=== PATIENT | female | born 1960 | race African-American/Black ===

== ENCOUNTER 2016-10-16 11:11 | Observation (INO) | payer SELFPAY ==
[~2016-10-16] VITALS: Ht 165.1 cm; Wt 52.0 kg
[~2016-10-16 11:11] MED LIST: FURO1TAB62 PO; IBUP800T23 PO; NEUR100C PO
[2016-10-16 11:13] VITALS: BP 119/77; PULSE 116; RESP 20; TEMP 97.7; O2SAT 97
--- NOTE | 2016-10-16 11:42 | PD ---
Physical Exam Date Seen by Provider: October 16, 2016 Time Seen by Provider: 11:37 Narrative 56 Y/O female patient sent in by MD for Hx 3 weeks Diarrhea, Vomitting, Loss of Appetite and weakness. Was recently given Flagyl for Possible C.Diff. No Fever. No Hx. DM, CA, Or other Chronic Medical Issue. Patient has not eaten since Sunday. Denies Fever or Urinary symptoms. Patient has Anxiety and Depression and Arthritis. Vomitting started yesterday. NKDA. VS Stable. Patient awaiting Bed Placement. Data Data Last Documented VS Vital Signs Date Time Temp Pulse Resp B/P Pulse Ox O2 Delivery O2 Flow Rate FiO2 10/16/16 11:13 97.7 116 20 119/77 97 Room Air [facility] Medical Record Reviewed: Yes Supervised Visit with MAURICIO: Yes Royer Flowers October 16, 2016 11:42
[2016-10-16] MEDS ORDERED: SODIUM CHLOR 0.9% 1000 ML INJ 1,000 ML IV SCH (11:55)
[2016-10-16] MEDS ORDERED: ONDANSETRON HCL 4 MG/2 ML VIAL IVP ONE (12:00)
--- NOTE | 2016-10-16 12:16 | PD ---
HPI Chief Complaint: GI Complaint Time Seen by Provider: 12:12 Travel History International Travel<30 days: No Contact w/Intl Traveler<30days: No Traveled to known affect area: No History of Present Illness HPI 56-year-old female that presents to the ED for evaluation of nausea and vomiting and diarrhea for the past 3 weeks. Per family and patient she's been having watery diarrhea since 3 weeks now. Stool has no consistency but is liquidy. Patient was seen by her doctor who started her on Flagyl to cover for C. difficile. Since Sunday per family patient has not eaten anything. Since yesterday she's been throwing up as well. They've and try to give her insurance but she cannot keep it down. She denies any abdominal pain. She does have a history of chronic pain to her knees. She denies any chest pain or shortness of breath. No cough or runny nose. Patient was seen today by her PCP who recommended the patient comes here to get evaluated. Patient comes here with a prescription from that same doctor stating that patient needs to be evaluated for this. Nobody appears to be sick in the house only hair. No recent medication changes. She did have some blood work last week which was essentially unremarkable. She has no allergies to medication. Again no pain. Most of the history is obtained from the daughter as patient herself doesn't really contribute to much of the history. She does appear to be somewhat dehydrated and malnourished. PFSH Past Medical History Cardiovascular Problems: Yes Chest Pain: Yes COPD: Yes Diminished Hearing: No Endocrine: No Genitourinary: No Hypertension: Yes Immune Disorder: No Musculoskeletal: No Neurologic: No Psychiatric: No Reproductive: No Respiratory: Yes Menopausal: Yes : 2 Para: 1 Miscarriage: 1 Social History Alcohol Use: No Tobacco Use: Yes (1 PPD) Substance Use: No Allergies-Medications (Allergen,Severity, Reaction): Coded Allergies: No Known Allergies (Verified , 10/16/16) Reported Meds & Prescriptions Reported Meds & Active Scripts Active Reported Flagyl (Metronidazole) 500 Mg Tab 500 Mg PO TID Citalopram (Citalopram Hydrobromide) 10 Mg Tab 10 Mg PO DAILY Hydroxyzine HCl 25 Mg Tab 25 Mg PO QID Review of Systems Except as stated in HPI: all other systems reviewed are Neg Physical Exam Narrative GENERAL: SKIN: Warm and dry. HEAD: Atraumatic. Normocephalic. EYES: Pupils equal and round 4 mm reactive to light and accommodation. No scleral icterus. No injection or drainage. ENT: No nasal bleeding or discharge. Mucous membranes pink and moist. Tongue is midline. No uvula deviation. NECK: Trachea midline. No JVD. CARDIOVASCULAR: Regular rate and rhythm. No murmurs, S3, S4. RESPIRATORY: No accessory muscle use. Clear to auscultation. Breath sounds equal bilaterally. GASTROINTESTINAL: Abdomen soft, non-tender, nondistended. Hepatic and splenic margins not palpable. MUSCULOSKELETAL: Extremities without clubbing, cyanosis, or edema. No obvious deformities. Full range of motion of the upper and lower extremities bilaterally. 2+ pulses bilaterally. NEUROLOGICAL: Awake and alert. No obvious cranial nerve deficits. Motor grossly within normal limits. Five out of 5 muscle strength in the arms and legs. Normal speech. PSYCHIATRIC: Appropriate mood and affect; insight and judgment normal. Data Data Last Documented VS Vital Signs Date Time Temp Pulse Resp B/P Pulse Ox O2 Delivery O2 Flow Rate FiO2 10/16/16 14:56 88 20 135/73 98 Room Air 10/16/16 11:13 97.7 Orders Complete Blood Count With Diff (10/16/16 11:55) Comprehensive Metabolic Panel (10/16/16 11:55) Lipase (10/16/16 11:55) Lactic Acid (10/16/16 11:55) Urinalysis - C+S If Indicated (10/16/16 11:55) Ct Abd/Pel W Iv Contrast(Rout) (10/16/16 11:55) Iv Access Insert/Monitor (10/16/16 11:55) Ecg Monitoring (10/16/16 11:55) Oximetry (10/16/16 11:55) Ondansetron Inj (Zofran Inj) (10/16/16 12:00) Sodium Chlor 0.9% 1000 Ml Inj (Ns 1000 M (10/16/16 11:55) Electrocardiogram (10/16/16 11:55) C Diff Toxin Pcr (10/16/16 11:55) Stool Ova And Parasite Screen (10/16/16 11:55) Stool Afb Culture And Stain (10/16/16 11:55) Creatine Kinase (Cpk) (10/16/16 12:14) Chest, Single Ap (10/16/16 ) Iohexol 350 Inj (Omnipaque 350 Inj) (10/16/16 15:40) Ciprofloxacin 400 Mg Premix (Cipro 400 M (10/16/16 16:15) Labs Laboratory Tests Test 10/16/16 10/16/16 10/16/16 12:45 12:50 15:10 White Blood Count 8.6 TH/MM3 Red Blood Count 5.76 MIL/MM3 Hemoglobin 13.0 GM/DL Hematocrit 40.9 % Mean Corpuscular Volume 70.9 FL Mean Corpuscular Hemoglobin 22.5 PG Mean Corpuscular Hemoglobin 31.7 % Concent Red Cell Distribution Width 17.2 % Platelet Count 312 TH/MM3 Mean Platelet Volume 7.9 FL Neutrophils (%) (Auto) 74.6 % Lymphocytes (%) (Auto) 14.5 % Monocytes (%) (Auto) 9.2 % Eosinophils (%) (Auto) 1.2 % Basophils (%) (Auto) 0.5 % Neutrophils # (Auto) 6.4 TH/MM3 Lymphocytes # (Auto) 1.3 TH/MM3 Monocytes # (Auto) 0.8 TH/MM3 Eosinophils # (Auto) 0.1 TH/MM3 Basophils # (Auto) 0.0 TH/MM3 CBC Comment AUTO DIFF Differential Comment AUTO DIFF CONFIRMED Ovalocytes 1+ Sodium Level 133 MEQ/L Potassium Level 4.3 MEQ/L Chloride Level 96 MEQ/L Carbon Dioxide Level 27.5 MEQ/L Anion Gap 10 MEQ/L Blood Urea Nitrogen 10 MG/DL Creatinine 0.67 MG/DL Estimat Glomerular Filtration 109 ML/MIN Rate Random Glucose 114 MG/DL Calcium Level 9.4 MG/DL Total Bilirubin 0.4 MG/DL Aspartate Amino Transf 17 U/L (AST/SGOT) Alanine Aminotransferase 15 U/L (ALT/SGPT) Alkaline Phosphatase 98 U/L Total Protein 8.3 GM/DL Albumin 3.0 GM/DL Lipase 51 U/L Lactic Acid Level 1.5 mmol/L Urine Color RED Urine Turbidity HAZY Urine pH 5.5 Urine Specific [place] 1.023 Urine Protein TRACE mg/dL Urine Glucose (UA) NEG mg/dL Urine Ketones 10 mg/dL Urine Occult Blood NEG Urine Nitrite NEG Urine Bilirubin NEG Urine Urobilinogen LESS THAN 2.0 MG/DL Urine Leukocyte Esterase TRACE Urine RBC LESS THAN 1 /hpf Urine WBC 2 /hpf Urine Bacteria RARE /hpf Urine Hyaline Casts 7 /lpf Urine Mucus FEW /lpf Microscopic Urinalysis Comment CULT NOT INDICATED MDM Medical Decision Making Medical Screen Exam Complete: Yes Emergency Medical Condition: Yes Medical Record Reviewed: Yes Interpretation(s) CBC & BMP Diagram 10/16/16 12:45 LFTs and Lipase WNL UA shows possible UTI Last Impressions Abdomen/Pelvis CT 10/16/16 1155 Signed Impressions: Service Date/Time: Sunday, October 16, 2016 15:27 - CONCLUSION: 1. There is several nonspecific para-aortic and retroperitoneal lymph nodes in the mid to lower abdomen bilaterally. 2. There are prominent bilateral obturator lymph nodes deep in the pelvis. There is also a few prominent bilateral inguinal lymph nodes. These findings are nonspecific. However, neoplastic disease such as lymphoma would be a consideration. Therefore, recommend a whole body PET/CT to evaluate for focal hypermetabolic activity. Todd Blanco MD Chest X-Ray 10/16/16 0000 Signed Impressions: Service Date/Time: Sunday, October 16, 2016 12:47 - CONCLUSION: No acute disease. Gabriel Figueredo MD FACR lactic acid WNL Differential Diagnosis Dehydration versus malnutrition versus diarrhea versus C. difficile versus gastroenteritis versus mass versus infection versus sepsis Narrative Course 56-year-old female that presents to the ED for evaluation of nausea and vomiting and diarrhea. Patient was properly examined and was found to have signs and symptoms of unclear etiology. Patient is not able to eat since Sunday. Cannot keep anything down. At this time recommendations for labs and imaging. Patient and daughter are in agreement with this plan. Patient was given IV fluids and antiemetics. Labs and imaging showed lymphadenopathy and possible UTI. Otherwise unremarkable. Patient still feels nauseous and family is concerned. Stool studies were ordered but she has not been able to give us a stool sample. Because of the findings and patient's symptoms I do recommend admission for further evaluation. This was discussed in my attending who was made aware of all findings and agrees with plan. Family and patient were told results and agree with admission. Patient was admitted to Dr. Kenney. Sepsis Criteria SIRS Criteria (2 or more): Heart rate over 90 Diagnosis Primary Impression: Intractable nausea and vomiting Qualified Code: R11.2 - Intractable vomiting with nausea, unspecified vomiting type Additional Impression: Lymphadenopathy, abdominal Admitting Information Admitting Physician Requests: Observation Javy Hassan October 16, 2016 12:16
[2016-10-16 13:00] VITALS: BP 148/78; PULSE 78; RESP 18; O2SAT 100
[2016-10-16 13:12] LABS: AUTOMATED NEUTROPHIL # 6.4 TH/MM3 (1.8-7.7); BASOPHIL % 0.5 % (0.0-2.0); EOSINOPHIL # 0.1 TH/MM3 (0-0.4); EOSINOPHIL % 1.2 % (0.0-4.0); HEMATOCRIT 40.9 % (35.0-46.0); LYMPH % 14.5 % (9.0-44.0); LYMPHOCYTE # 1.3 TH/MM3 (1.0-4.8); MEAN CELL VOLUME 70.9 FL (80.0-100.0); MEAN CORPUSCULAR HEMOGLOBIN 22.5 PG (27.0-34.0); MEAN CORPUSCULAR HGB CONC 31.7 % (32.0-36.0); MONO % 9.2 % (0.0-8.0); NEUT % 74.6 % (16.0-70.0); PLATELET COUNT 312 TH/MM3 (150-450); RED BLOOD COUNT 5.76 MIL/MM3 (4.00-5.30); RED CELL DISTRIBUTION WIDTH 17.2 % (11.6-17.2); WHITE BLOOD COUNT 8.6 TH/MM3 (4.0-11.0)
[2016-10-16 13:13] LABS: HEMO FLAGS AUTO DIFF
[2016-10-16] MEDS ORDERED: CITA10TA4 PO (13:17)
[2016-10-16] MEDS ORDERED: HYDR-3133 PO (13:17)
[2016-10-16] MEDS ORDERED: METR-1 PO (13:17)
[2016-10-16 13:30] LABS: ANION GAP 10 MEQ/L (5-15); AST (GOT) 17 U/L (15-37); BICARBONATE 27.5 MEQ/L (21.0-32.0); BLOOD UREA NITROGEN 10 MG/DL (7-18); CHLORIDE 96 MEQ/L (98-107); GLOMERULAR FILTRATION RATE 109 ML/MIN (>89); POTASSIUM 4.3 MEQ/L (3.5-5.1); SODIUM (NA) 133 MEQ/L (136-145)
[2016-10-16 13:33] LABS: ALKALINE PHOSPHATASE 98 U/L (45-117); ALT (GPT) 15 U/L (10-53); TOTAL BILIRUBIN ADULT 0.4 MG/DL (0.2-1.0)
[2016-10-16 13:42] LABS: OVALOCYTES 1+ (NORMAL); SCAN/DIFF AUTO DIFF CONFIRMED
--- NOTE | 2016-10-16 14:15 | RADRPT ---
EXAM DATE/TIME: 10/16/2016 12:47 [facility] COMPARISON: CHEST SINGLE AP, April 07, 2015, 10:39. INDICATIONS : Fever, vomiting, diarrhea, weight loss, short of breath. MEDICAL HISTORY : Diabetes mellitus type II. SURGICAL HISTORY : None. ENCOUNTER: Initial ACUITY: 4 - 6 days PAIN SCORE: 0/10 LOCATION: Bilateral chest FINDINGS: A single view of the chest demonstrates the lungs to be symmetrically aerated without evidence of mas s, infiltrate or effusion. The cardiomediastinal contours are unremarkable. Osseous structures are intact. CONCLUSION: No acute disease. Gabriel Figueredo MD FACR on October 16, 2016 at 14:12 Board Certified Radiologist. This report was verified electronically.
[2016-10-16 14:56] VITALS: BP 135/73; PULSE 88; RESP 20; O2SAT 98
[2016-10-16] MEDS ORDERED: IOHEXOL 350 MG/ML 10 ML VIAL (for RAD DIAG) IV ONE (15:40)
--- NOTE | 2016-10-16 15:47 | RADRPT ---
EXAM DATE/TIME: 10/16/2016 15:27 [facility] COMPARISON: No previous studies available for comparison. INDICATIONS : Patient dehydrated, vomitting. IV CONTRAST: 75 cc Omnipaque 350 (iohexol) IV ORAL CONTRAST: No oral contrast ingested. RADIATION DOSE: 4.74 CTDIvol (mGy) MEDICAL HISTORY : Cardiovascular disease. Hypertension. SURGICAL HISTORY : None. ENCOUNTER: Initial ACUITY: 1 day PAIN SCALE: 2/10 LOCATION: lower quadrant TECHNIQUE: Volumetric scanning of the abdomen and pelvis was performed. Using automated exposure control and ad justment of the mA and/or kV according to patient size, radiation dose was kept as low as reasonably achievable to obtain optimal diagnostic quality images. FINDINGS: LOWER LUNGS: The visualized lower lungs are clear. LIVER: Homogeneous density without lesion. There is no dilation of the biliary tree. No calcified gallston es. SPLEEN: Normal size without lesion. PANCREAS: Within normal limits. KIDNEYS: Normal in size and shape. There is no mass, stone or hydronephrosis. ADRENAL GLANDS: Within normal limits. VASCULAR: There is no aortic aneurysm. BOWEL/MESENTERY: The stomach, small bowel, and colon demonstrate no acute abnormality. There is no free intraperitone al air or fluid. No inflammatory changes are seen. There is stool in the colon. A few small scattered diverticula are noted along the sigmoid colon. ABDOMINAL WALL: Within normal limits. RETROPERITONEUM: A few Nonspecific retroperitoneal lymph nodes are demonstrated in the mid to lower abdomen. They kendrick sure about 6-7 mm. However there are some prominent popliteal lymph nodes in the sidewalls of the pel vis bilaterally. On the right side is a lymph node measuring 2.4 cm. On the left side is a lymph node measuring 2.6 cm. BLADDER: No wall thickening or mass. REPRODUCTIVE: Within normal limits. INGUINAL: There are bilateral nonspecific inguinal lymph nodes. The largest lymph node measures about 1.8 cm an d the right groin. MUSCULOSKELETAL: Within normal limits for patient age. CONCLUSION: 1. There is several nonspecific para-aortic and retroperitoneal lymph nodes in the mid to lower abdom en bilaterally. 2. There are prominent bilateral obturator lymph nodes deep in the pelvis. There is also a few promin ent bilateral inguinal lymph nodes. These findings are nonspecific. However, neoplastic disease such as lymphoma would be a consideration. Therefore, recommend a whole body PET/CT to evaluate for focal hypermetabolic activity. Todd Blanco MD on October 16, 2016 at 15:37 Board Certified Radiologist. This report was verified electronically.
[2016-10-16 15:54] LABS: BACTERIA, URINE RARE /hpf; BLOOD, URINE NEG (NEG); COMMENT (UR) CULT NOT INDICATED; CULTURE IF INDICATED CULT NOT INDICATED; GLUCOSE,URINE NEG (NEG); HYALINE CAST, URINE 7 /lpf (RARE); KETONE, URINE 10 mg/dL (NEG); MUCUS URINE FEW /lpf (OCC); NITRITE,URINE NEG (NEG); PH, URINE 5.5 (5.0-8.5)
[2016-10-16 15:55] LABS: URINE COLOR RED (YELLW/STRAW)
[2016-10-16] MEDS ORDERED: CIPROFLOXACIN 400 MG PREMIX 200 ML IV ONE (16:15)
[2016-10-16] MEDS ORDERED: ONDANSETRON HCL 4 MG/2 ML VIAL IVP PRN (16:30)
[2016-10-16] MEDS ORDERED: SODIUM CHLORIDE 0.9% FLUSH 10 ML FLUSH IV FLUSH PRN (16:30)
[2016-10-16] MEDS ORDERED: NALOXONE HCL 0.4 MG/ML AMP IV PRN (16:30)
[2016-10-16] MEDS ORDERED: MAGNESIUM HYDROXIDE SUSP 30 ML CUP PO PRN (16:30)
[2016-10-16] MEDS: SODIUM CHLOR 0.9% 1000 ML INJ 1,000 ML IV SCH (17:07)
[2016-10-16 18:29] VITALS: BP 119/58; PULSE 84; RESP 16; TEMP 98; O2SAT 99
[2016-10-16 19:53] VITALS: BP 132/63; PULSE 83; RESP 20; O2SAT 100
[2016-10-16] MEDS: SODIUM CHLORIDE 0.9% FLUSH 10 ML FLUSH IV FLUSH SCH (21:00)
--- NOTE | 2016-10-16 22:29 | HHI.HP ---
[facility] Admission Diagnosis intractable nausea, vomit and diarrhea, lymphadenopathy Diagnoses: Chief Complaint: Diarrhea, weight loss, nausea, vomiting. Travel History International Travel<30 Days: No Contact w/Intl Traveler <30 Da: No Traveled to Known Affected Are: No History of Present Illness Ms. Castro is a pleasant 56 year old female with no significant medical history who presented to the ED due to nausea, vomiting, diarrhea, weight loss. During last 3 weeks, patient has been experiencing lack of appetite , diarrhea. She denies any abdominal pain. Due to her anorexia, she started drinking Ensure on 10/14/2016. Initially she tolerated Ensure okay except for some nausea. However, the following day, day prior to this admission , patient started having vomiting as well. Due to persistent diarrhea, patient' s primary care provider started her on Flagyl. However, it has not helped her symptoms. Denies any fever, chills. Denies any chest pain, cough. No changes in bladder habits. Patient reports about 14 pound weight loss over the last 3-4 weeks. She has not had any colonoscopy in recent years. Review of Systems Except as stated in HPI: all other systems reviewed are Neg Past Family Social History Past Medical History Osteoarthritis. Past Surgical History No major surgery in the past. Reported Medications Flagyl (Metronidazole) 500 Mg Tab 500 Mg PO TID Citalopram (Citalopram Hydrobromide) 10 Mg Tab 10 Mg PO DAILY Hydroxyzine HCl 25 Mg Tab 25 Mg PO QID Allergies: Coded Allergies: No Known Allergies (Verified , 10/16/16) Family History Mother - Colon cancer Father - Stomach cancer Brother - Colon cancer. Social History Smoked 1.5 ppd for about 40 years and quit smoking about 1 week ago. Denies using alcohol or illicit drugs. Physical Exam Vital Signs Vital Signs Date Time Temp Pulse Resp B/P Pulse Ox O2 Delivery O2 Flow Rate FiO2 10/16/16 19:53 83 20 132/63 100 10/16/16 18:29 98.0 84 16 119/58 99 Room Air 10/16/16 14:56 88 20 135/73 98 Room Air 10/16/16 13:00 78 18 148/78 100 Room Air 10/16/16 11:13 97.7 116 20 119/77 97 Room Air Physical Exam GENERAL: Cachectic looking elderly female, NAD. SKIN: No rashes, ecchymoses or lesions. Cool and dry. HEAD: Atraumatic. Normocephalic. No temporal or scalp tenderness. EYES: Pupils equal round and reactive. Extraocular motions intact. No scleral icterus. No injection or drainage. ENT: Nose without bleeding, purulent drainage or septal hematoma. Throat without erythema, tonsillar hypertrophy or exudate. Uvula midline. Airway patent. NECK: Trachea midline. No JVD or lymphadenopathy. Supple, nontender, no meningeal signs. CARDIOVASCULAR: Regular rate and rhythm without murmurs, gallops, or rubs. RESPIRATORY: Clear to auscultation. Breath sounds equal bilaterally. No wheezes , rales, or rhonchi. GASTROINTESTINAL: Abdomen soft, non-tender, nondistended. No hepato-splenomegaly , or palpable masses. No guarding. MUSCULOSKELETAL: Extremities without clubbing, cyanosis, or edema. No joint tenderness, effusion, or edema noted. No calf tenderness. Negative Homans sign bilaterally. NEUROLOGICAL: Awake and alert. Cranial nerves II through XII intact. Motor and sensory grossly within normal limits. Five out of 5 muscle strength in all muscle groups. Normal speech. Laboratory Laboratory Tests Test 10/16/16 10/16/16 10/16/16 12:45 12:50 15:10 White Blood Count 8.6 Red Blood Count 5.76 Hemoglobin 13.0 Hematocrit 40.9 Mean Corpuscular Volume 70.9 Mean Corpuscular Hemoglobin 22.5 Mean Corpuscular Hemoglobin 31.7 Concent Red Cell Distribution Width 17.2 Platelet Count 312 Mean Platelet Volume 7.9 Neutrophils (%) (Auto) 74.6 Lymphocytes (%) (Auto) 14.5 Monocytes (%) (Auto) 9.2 Eosinophils (%) (Auto) 1.2 Basophils (%) (Auto) 0.5 Neutrophils # (Auto) 6.4 Lymphocytes # (Auto) 1.3 Monocytes # (Auto) 0.8 Eosinophils # (Auto) 0.1 Basophils # (Auto) 0.0 CBC Comment AUTO DIFF Differential Comment AUTO DIFF CONFIRMED Ovalocytes 1+ Sodium Level 133 Potassium Level 4.3 Chloride Level 96 Carbon Dioxide Level 27.5 Anion Gap 10 Blood Urea Nitrogen 10 Creatinine 0.67 Estimat Glomerular Filtration 109 Rate Random Glucose 114 Calcium Level 9.4 Total Bilirubin 0.4 Aspartate Amino Transf 17 (AST/SGOT) Alanine Aminotransferase 15 (ALT/SGPT) Alkaline Phosphatase 98 Total Protein 8.3 Albumin 3.0 Lipase 51 Lactic Acid Level 1.5 Urine Color RED Urine Turbidity HAZY Urine pH 5.5 Urine Specific [place] 1.023 Urine Protein TRACE Urine Glucose (UA) NEG Urine Ketones 10 Urine Occult Blood NEG Urine Nitrite NEG Urine Bilirubin NEG Urine Urobilinogen LESS THAN 2.0 Urine Leukocyte Esterase TRACE Urine RBC LESS THAN 1 Urine WBC 2 Urine Bacteria RARE Urine Hyaline Casts 7 Urine Mucus FEW Microscopic Urinalysis Comment CULT NOT INDICATED Result Diagram: 10/16/16 1245 10/16/16 1245 Imaging Last Impressions Abdomen/Pelvis CT 10/16/16 1155 Signed Impressions: Service Date/Time: Sunday, October 16, 2016 15:27 - CONCLUSION: 1. There is several nonspecific para-aortic and retroperitoneal lymph nodes in the mid to lower abdomen bilaterally. 2. There are prominent bilateral obturator lymph nodes deep in the pelvis. There is also a few prominent bilateral inguinal lymph nodes. These findings are nonspecific. However, neoplastic disease such as lymphoma would be a consideration. Therefore, recommend a whole body PET/CT to evaluate for focal hypermetabolic activity. Todd Blanco MD Chest X-Ray 10/16/16 0000 Signed Impressions: Service Date/Time: Sunday, October 16, 2016 12:47 - CONCLUSION: No acute disease. Gabriel Figueredo MD FACR Assessment and Plan Problem List: (1) Lymphadenopathy, abdominal ICD Code: R59.0 Status: Acute (2) Acute gastroenteritis ICD Code: K52.9 Status: Acute Assessment and Plan Ms. Castro is a pleasant 56 year old female with no significant medical history presents to the ED due to 3 week duration of diarrhea and 1-2 day duration of nausea, vomiting. She reports significant family history of GI malignancies. She has lost about 14 lbs over the last 3-4 weeks. - Acute gastroenteritis - Diarrhea, nausea, vomiting. - Abdominal lymphadenopathy - Will check C. Diff PCR as well as stool O&P - Will consult GI for further recommendations including possible EGD/ Colonoscopy - Will consult General Surgery (Dr. Ahn) - we likely need to get excisional lymph node biopsy. - Continue clear liquid diet. NS @100cc/hour. - Zofran for nausea. DNR. SCDs. Dia Kenney DO October 16, 2016 22:29
[2016-10-17 00:26] VITALS: BP 144/65; PULSE 79; RESP 18; TEMP 97.8; O2SAT 100
[2016-10-17 04:22] VITALS: BP 148/67; PULSE 79; RESP 18; TEMP 98.4; O2SAT 99
[2016-10-17] MEDS: ACETAMINOPHEN 325 MG TAB PO PRN ×2 (04:29→23:43)
[2016-10-17] MEDS: SODIUM CHLOR 0.9% 1000 ML INJ 1,000 ML IV SCH ×3 (04:30→23:00)
[2016-10-17 05:54] LABS: AUTOMATED NEUTROPHIL # 3.5 TH/MM3 (1.8-7.7); BASOPHIL % 0.5 % (0.0-2.0); EOSINOPHIL # 0.2 TH/MM3 (0-0.4); EOSINOPHIL % 2.9 % (0.0-4.0); HEMATOCRIT 34.2 % (35.0-46.0); LYMPH % 29.4 % (9.0-44.0); LYMPHOCYTE # 1.9 TH/MM3 (1.0-4.8); MEAN CORPUSCULAR HEMOGLOBIN 22.6 PG (27.0-34.0); MEAN CORPUSCULAR HGB CONC 31.9 % (32.0-36.0); MONO % 10.9 % (0.0-8.0); NEUT % 56.3 % (16.0-70.0); PLATELET COUNT 256 TH/MM3 (150-450); RED BLOOD COUNT 4.82 MIL/MM3 (4.00-5.30); WHITE BLOOD COUNT 6.3 TH/MM3 (4.0-11.0)
[2016-10-17 06:03] LABS: HEMO FLAGS AUTO DIFF
[2016-10-17 06:09] LABS: BICARBONATE 25.2 MEQ/L (21.0-32.0); POTASSIUM 3.8 MEQ/L (3.5-5.1)
[2016-10-17 06:48] LABS: ACANTHOCYTES OCC (NORMAL); OVALOCYTES 1+ (NORMAL)
[2016-10-17 06:49] LABS: HELMET CELLS OCC (NORMAL); PLATELET ESTIMATE SMEAR NORMAL (NORMAL); PLATELET MORPHOLOGY NORMAL (NORMAL); SCAN/DIFF AUTO DIFF CONFIRMED
[2016-10-17 07:46] VITALS: BP 130/65; PULSE 70; RESP 18; TEMP 98; O2SAT 99
[2016-10-17] MEDS: SODIUM CHLORIDE 0.9% FLUSH 10 ML FLUSH IV FLUSH SCH ×2 (08:15→20:21)
[2016-10-17] MEDS: CITALOPRAM HYDROBROMIDE 20 MG TAB PO SCH (08:16)
[2016-10-17] MEDS: hydrOXYzine HCL 25 MG TAB PO SCH ×4 (08:16→20:21)
--- NOTE | 2016-10-17 08:51 | HHI.PR ---
Subjective Remarks Follow-up for gastroenteritis and abdominal lymphadenopathy. The patient complains of left leg pain overnight that was relieved with 2 Tylenol. She states she has arthritis in that leg. She denies any abdominal pain. She tolerated clear liquids last night with no vomiting and light to eat more solid food. She last vomited yesterday in the ED. Her last episode of diarrhea was 2 days ago. She has a history of multiple family members with cancer including her mother, father, and brother. She would like to know if she has cancer, but does not want to have any surgery, chemotherapy, radiation. She has a PCP, but she does not know who it is, she says her daughter manages that. She is currently staying with her daughter because she has not been doing well lately. She ambulates using a cane. She states that her daughter made her take an antibiotic that she started 2 weeks ago, does not know how long she took it for. Objective Vitals Vital Signs Date Time Temp Pulse Resp B/P Pulse Ox O2 Delivery O2 Flow Rate FiO2 10/17/16 07:46 98.0 70 18 130/65 99 10/17/16 05:55 18 10/17/16 04:22 98.4 79 18 148/67 99 10/17/16 00:26 97.8 79 18 144/65 100 10/16/16 19:53 83 20 132/63 100 10/16/16 18:29 98.0 84 16 119/58 99 Room Air 10/16/16 14:56 88 20 135/73 98 Room Air 10/16/16 13:00 78 18 148/78 100 Room Air 10/16/16 11:13 97.7 116 20 119/77 97 Room Air Result Diagram: 10/17/16 0450 10/17/16 0450 Imaging Last Impressions Abdomen/Pelvis CT 10/16/16 1155 Signed Impressions: Service Date/Time: Sunday, October 16, 2016 15:27 - CONCLUSION: 1. There is several nonspecific para-aortic and retroperitoneal lymph nodes in the mid to lower abdomen bilaterally. 2. There are prominent bilateral obturator lymph nodes deep in the pelvis. There is also a few prominent bilateral inguinal lymph nodes. These findings are nonspecific. However, neoplastic disease such as lymphoma would be a consideration. Therefore, recommend a whole body PET/CT to evaluate for focal hypermetabolic activity. Todd Blanco MD Chest X-Ray 10/16/16 0000 Signed Impressions: Service Date/Time: Sunday, October 16, 2016 12:47 - CONCLUSION: No acute disease. Gabriel Figueredo MD FACR Objective Remarks GENERAL: Well-developed well-nourished. In no acute distress. SKIN: Warm and dry. No lesions noted. HEENT: Normocephalic. Pupils equal and round. Mucous membranes pink and moist. CARDIOVASCULAR: Regular rate and rhythm. No murmur appreciated. RESPIRATORY: No accessory muscle use. Clear to auscultation. Breath sounds equal bilaterally. GASTROINTESTINAL: Abdomen soft, non-tender, nondistended. Bowel sounds x4. MUSCULOSKELETAL: No obvious deformities. No clubbing or cyanosis. No edema. Bilateral lower sternum is tender to touch. NEUROLOGICAL: Awake and alert. No focal neurological deficits. Moves upper and lower extremities spontaneously. Normal speech. PSYCHIATRIC: Appropriate mood and affect; insight and judgment normal. A/P Problem List: (1) Lymphadenopathy, abdominal ICD Code: R59.0 Status: Acute (2) Acute gastroenteritis ICD Code: K52.9 Status: Acute Assessment and Plan Ms. Castro is a pleasant 56 year old female with no significant medical history presents to the ED due to 3 week duration of diarrhea and 1-2 day duration of nausea, vomiting. She reports significant family history of GI malignancies. She has lost about 14 lbs over the last 3-4 weeks. - Acute gastroenteritis - Diarrhea, nausea, vomiting. - Check stool studies if any further episodes of diarrhea - ADAT - GI consulted - Antiemetics IVF - Abdominal lymphadenopathy Reviewed: Abdominal CT showed several nonspecific para-aortic and retroperitoneal lymph nodes, prominent bilateral obturator lymph nodes deep in the pelvis, prominent bilateral inguinal lymph nodes; these findings are nonspecific, however neoplastic disease such as lymphoma would be a consideration. - Consulted General Surgery (Dr. Ahn) for possible excisional lymph node biopsy. - Consult oncology for further evaluation - Consult palliative care to clarify goals of care DNR. [place]. Adin Crawford October 17, 2016 08:51
--- NOTE | 2016-10-17 09:15 | PD.CONS ---
HPI History of Present Illness This is a 56 year old female who has been admitted for diarrhea and abnormal CT scan. She reports having a 50 lb wt loss over the last 6 months because she lost her appetite. Denies abdominal pain or vomiting, but nauseated at times. She developed diarrhea about one week ago. One BM per day watery. Yesterday daughter noticed it was orange or bloody. No fever or chills. No abdominal pain now. CT scan showed some lymphadenopathy. She has had colonoscopy 10 years ago and had polyps at that time. Her mother of colon cancer and her father with what sounds like a colostomy. She reports tingling in her feet but does not think she has diabetes. []. PFSH Past Medical History Osteoarthritis. Past Surgical History No major surgery in the past. Coded Allergies: No Known Allergies (Verified , 10/16/16) Medications Current Medications Medications (Trade) Dose Ordered Sig/Sendy Route Start Time Stop Time Status Last Admin (NS 1000 ml Inj) 1,000 ml @ 100 mls/hr Q10H IV 10/16/16 17:00 10/17/16 04:30 (NS Flush) 2 ml UNSCH PRN IV FLUSH 10/16/16 16:30 (NS Flush) 2 ml BID IV FLUSH 10/16/16 21:00 (Tylenol) 650 mg Q4H PRN PO 10/16/16 16:30 10/17/16 04:29 (Zofran Inj) 4 mg Q6H PRN IVP 10/16/16 16:30 (Milk Of Magnesia Liq) 30 ml Q12H PRN PO 10/16/16 16:30 (Narcan Inj) 0.4 mg UNSCH PRN IV 10/16/16 16:30 (CeleXA) 10 mg DAILY PO 10/17/16 09:00 10/17/16 08:16 (Atarax) 25 mg QID PO 10/17/16 09:00 10/17/16 08:16 Family History Mother - Colon cancer Father - Stomach cancer Brother - Colon cancer. Social History Smoked 1.5 ppd for about 40 years and quit smoking about 1 week ago. Denies using alcohol or illicit drugs. Review of Systems Constitutional: COMPLAINS OF: Diaphoretic episodes, Fatigue, Fever, Weight gain , Weight loss, Chills, Dizziness, Change in appetite, Night Sweats GI Exam Vitals I&O Vital Signs Date Time Temp Pulse Resp B/P Pulse Ox O2 Delivery O2 Flow Rate FiO2 10/17/16 07:46 98.0 70 18 130/65 99 10/17/16 05:55 18 10/17/16 04:22 98.4 79 18 148/67 99 10/17/16 00:26 97.8 79 18 144/65 100 10/16/16 19:53 83 20 132/63 100 10/16/16 18:29 98.0 84 16 119/58 99 Room Air 10/16/16 14:56 88 20 135/73 98 Room Air 10/16/16 13:00 78 18 148/78 100 Room Air 10/16/16 11:13 97.7 116 20 119/[address] shows lymphadenopathy in abdomen This report is in ERROR Please disregard this report and all prior copies ! This report is in ERROR Please disregard this report and all prior copies ! This report is in ERROR Please disregard this report and all prior copies ! Laboratory Test 10/16/16 10/16/16 10/16/16 10/17/16 12:45 12:50 15:10 04:50 White Blood Count 8.6 TH/MM3 6.3 TH/MM3 Red Blood Count 5.76 MIL/MM3 4.82 MIL/MM3 Hemoglobin 13.0 GM/DL 10.9 GM/DL Hematocrit 40.9 % 34.2 % Mean Corpuscular Volume 70.9 FL 71.0 FL Mean Corpuscular Hemoglobin 22.5 PG 22.6 PG Mean Corpuscular Hemoglobin 31.7 % 31.9 % Concent Red Cell Distribution Width 17.2 % 17.0 % Platelet Count 312 TH/MM3 256 TH/MM3 Mean Platelet Volume 7.9 FL 7.6 FL Neutrophils (%) (Auto) 74.6 % 56.3 % Lymphocytes (%) (Auto) 14.5 % 29.4 % Monocytes (%) (Auto) 9.2 % 10.9 % Eosinophils (%) (Auto) 1.2 % 2.9 % Basophils (%) (Auto) 0.5 % 0.5 % Neutrophils # (Auto) 6.4 TH/MM3 3.5 TH/MM3 Lymphocytes # (Auto) 1.3 TH/MM3 1.9 TH/MM3 Monocytes # (Auto) 0.8 TH/MM3 0.7 TH/MM3 Eosinophils # (Auto) 0.1 TH/MM3 0.2 TH/MM3 Basophils # (Auto) 0.0 TH/MM3 0.0 TH/MM3 CBC Comment AUTO DIFF AUTO DIFF Differential Comment AUTO DIFF AUTO DIFF CONFIRMED CONFIRMED Ovalocytes 1+ 1+ Sodium Level 133 MEQ/L 137 MEQ/L Potassium Level 4.3 MEQ/L 3.8 MEQ/L Chloride Level 96 MEQ/L 104 MEQ/L Carbon Dioxide Level 27.5 MEQ/L 25.2 MEQ/L Anion Gap 10 MEQ/L 8 MEQ/L Blood Urea Nitrogen 10 MG/DL 5 MG/DL Creatinine 0.67 MG/DL 0.34 MG/DL Estimat Glomerular Filtration 109 ML/MIN 239 ML/MIN Rate Random Glucose 114 MG/DL 70 MG/DL Calcium Level 9.4 MG/DL 8.4 MG/DL Total Bilirubin 0.4 MG/DL Aspartate Amino Transf 17 U/L (AST/SGOT) Alanine Aminotransferase 15 U/L (ALT/SGPT) Alkaline Phosphatase 98 U/L Total Creatine Kinase 37 U/L Total Protein 8.3 GM/DL Albumin 3.0 GM/DL Lipase 51 U/L Lactic Acid Level 1.5 mmol/L Urine Color RED Urine Turbidity HAZY Urine pH 5.5 Urine Specific [place] 1.023 Urine Protein TRACE mg/dL Urine Glucose (UA) NEG mg/dL Urine Ketones 10 mg/dL Urine Occult Blood NEG Urine Nitrite NEG Urine Bilirubin NEG Urine Urobilinogen LESS THAN 2.0 MG/DL Urine Leukocyte Esterase TRACE Urine RBC LESS THAN 1 /hpf Urine WBC 2 /hpf Urine Bacteria RARE /hpf Urine Hyaline Casts 7 /lpf Urine Mucus FEW /lpf Microscopic Urinalysis Comment CULT NOT INDICATED Platelet Estimate NORMAL Platelet Morphology Comment NORMAL Helmet Cells OCC Acanthocytes OCC Physical Examination HEENT: Pupils round and reactive to light; normocephalic; atraumatic; no jaundice. Throat is clear. NECK: Neck is supple, no JVD, no lymphadenopathy. CHEST: Chest is clear to auscultation and percussion. CARDIAC: Regular rate and rhythm with no murmur gallop or rubs. ABDOMEN: Soft, nondistended, nontender; no hepatosplenomegaly; bowel sounds are present in all four quadrants. EXTREMITIES: No clubbing, cyanosis, or edema. SKIN: Normal; no rash; no jaundice. ROOFING TECHNICIAN: No focal deficits; alert and oriented times three. Psych: normal affect Assessment and Plan Plan Impression: Diarrhea with Abnormal CT scan with lymphadenopathy History of colon polyps. Family history of gastric cancer Plan: EGD and colonoscopy tomorrow. Mickey Durham MD October 17, 2016 09:15
[2016-10-17 11:50] VITALS: BP 131/67; PULSE 71; RESP 16; TEMP 97.9; O2SAT 98
[2016-10-17 12:56] LABS: C. DIFF EPI 027 PRESUMPTIVE NEGATIVE (NEGATIVE); C. DIFF TOXIN PCR NEGATIVE (NEGATIVE)
[2016-10-17] MEDS ORDERED: PEG (High)/E-LYTE SOLN 4000 ML BTL PO ONE (13:15)
--- NOTE | 2016-10-17 14:16 | EKG ---
Date Performed: 10/16/2016 Time Performed: 12:40:03 PTAGE: 56 years EKG: Sinus rhythm POSSIBLE LEFT ATRIAL ENLARGEMENT BORDERLINE ECG PREVIOUS TRACING : 01/28/2013 18.26 Compared to prior tracing no significant change DOCTOR: Jake Roberts Interpretating Date/Time 10/17/2016 14:14:52
--- NOTE | 2016-10-17 15:00 | PD.CAR.PN ---
CVT Progress Note Subjective/Hospital Course: 56-year-old black female presents to the emergency room with about 20 pounds weight loss since the [place] on most recently with nausea vomiting and anorexia for the last week or so. On initial CT of abdomen and pelvis patient was found to have some retroperitoneal mild lymphadenopathy in few nodes in the groin. Groin lymphadenopathy is fairly common in general population and biopsy of this at this time would be a superfluous procedure for likely it'll come back as reactive disease and nondiagnostic The pattern of this lymphadenopathy certainly does not reveal anything that would raise suspicion for lymphoma, so I would abstain from biopsy for the time being. At this point patient requires full workup as per medicine including upper and lower endoscopy and testing for common conditions that could contribute to this including testing for immune diseases like HIV hepatitis and such. If everything else fails, we can always do a lymph node biopsy. We will follow the patient which you Thanks J Objective: Vital Signs Date Time Temp Pulse Resp B/P Pulse Ox O2 Delivery O2 Flow Rate FiO2 10/17/16 11:50 97.9 71 16 131/67 98 10/17/16 07:46 98.0 70 18 130/65 99 10/17/16 05:55 18 10/17/16 04:22 98.4 79 18 148/67 99 10/17/16 00:26 97.8 79 18 144/65 100 10/16/16 19:53 83 20 132/63 100 10/16/16 18:29 98.0 84 16 119/58 99 Room Air Labs: Laboratory Tests Test 10/17/16 10/17/16 04:50 11:27 White Blood Count 6.3 TH/MM3 (4.0-11.0) Red Blood Count 4.82 MIL/MM3 (4.00-5.30) Hemoglobin 10.9 GM/DL (11.6-15.3) Hematocrit 34.2 % (35.0-46.0) Mean Corpuscular Volume 71.0 FL (80.0-100.0) Mean Corpuscular Hemoglobin 22.6 PG (27.0-34.0) Mean Corpuscular Hemoglobin 31.9 % Concent (32.0-36.0) Red Cell Distribution Width 17.0 % (11.6-17.2) Platelet Count 256 TH/MM3 (150-450) Mean Platelet Volume 7.6 FL (7.0-11.0) Neutrophils (%) (Auto) 56.3 % (16.0-70.0) Lymphocytes (%) (Auto) 29.4 % (9.0-44.0) Monocytes (%) (Auto) 10.9 % (0.0-8.0) Eosinophils (%) (Auto) 2.9 % (0.0-4.0) Basophils (%) (Auto) 0.5 % (0.0-2.0) Neutrophils # (Auto) 3.5 TH/MM3 (1.8-7.7) Lymphocytes # (Auto) 1.9 TH/MM3 (1.0-4.8) Monocytes # (Auto) 0.7 TH/MM3 (0-0.9) Eosinophils # (Auto) 0.2 TH/MM3 (0-0.4) Basophils # (Auto) 0.0 TH/MM3 (0-0.2) CBC Comment AUTO DIFF Differential Comment AUTO DIFF CONFIRMED Platelet Estimate NORMAL (NORMAL) Platelet Morphology Comment NORMAL (NORMAL) Ovalocytes 1+ (NORMAL) Helmet Cells OCC (NORMAL) Acanthocytes OCC (NORMAL) Sodium Level 137 MEQ/L (136-145) Potassium Level 3.8 MEQ/L (3.5-5.1) Chloride Level 104 MEQ/L (98-107) Carbon Dioxide Level 25.2 MEQ/L (21.0-32.0) Anion Gap 8 MEQ/L (5-15) Blood Urea Nitrogen 5 MG/DL (7-18) Creatinine 0.34 MG/DL (0.50-1.00) Estimat Glomerular Filtration 239 ML/MIN Rate (>89) Random Glucose 70 MG/DL (74-106) Calcium Level 8.4 MG/DL (8.5-10.1) Stool C. difficile Toxin (PCR) NEGATIVE (NEGATIVE) Stl C. difficile Toxin PRESUMPTIVE Epiderm 027 NEGATIVE (NEGATIVE) Result Diagram: 10/17/16 0450 10/17/16 0450 Andrew Ahn MD October 17, 2016 15:00
--- NOTE | 2016-10-17 15:06 | PD.CONS ---
Consult Service Palliative Care Consult Requested By Kamar Torres Primary Care Physician Non-Staff . Reason for Consultation a. To assist with evaluation and management of symptoms including: Pain, edema b. To assist medical decision maker(s) with: better understanding of current medical conditions; weighing benefits/burdens of medical treatment options; making medical treatment decisions. . HPI History of Present Illness This 56-year-old female, with a past history of weight loss, chronic leg pain, and worsening lower extremity edema, presented to the emergency department on because of 3 weeks of nausea, loose stools, worsening weakness, and increasing edema. The patient reports that she has been losing weight steadily over the past year, now more than 60 pounds in less than a year. She has had a few episodes of vomiting in the past couple weeks, and a trial of Flagyl had been initiated for the possibility of C. difficile enterocolitis, but she was not improving. She was weak, and fell back onto the bed when she tried to get up a couple nights ago, but has not had other falls. She has had no injuries, but has had worsening leg pain, particularly her left knee, over the past few months as she has had increasing bilateral leg edema. In the emergency department, findings included: * Temp 97.7, pulse 116, respirations 20, blood pressure 119/77, oxygen saturation 97% on room air * White count 8.6, hemoglobin 13.0 * Sodium 133, creatinine 0.67, albumin 3.0 * Chest x-ray without acute findings * Abdomen/pelvis CT revealed para-aortic and retroperitoneal nodes as well as some obturator nodes in the pelvis On review of old records, I find a CT scan involving the chest in 2012 that indicated "mild nonspecific mediastinal adenopathy," and recommended follow-up. I do not see any scans of the chest since then. The patient has had worsening edema and pain in her legs over the past few months, worse in the area of the right knee. She has not been able to work in the past 5 months because of the debility caused by her leg pain and swelling. Palliative Care was consulted to assist with symptom management, and to enter into discussions with the patient (and family) regarding her current illnesses, additional workup that is pending, prognosis, and the benefits and burdens of the various treatment options. . Function/Cognitive Trajectory The patient has been functioning fairly independently, but has required a cane over the past 5 months. She has been weaker as she has lost more weight, and she did have the one fall the day prior to admission here (without injury). . Review of Systems Constitutional: COMPLAINS OF: Weight loss Endocrine: DENIES: Polyuria Eyes: DENIES: Eye inflammation Ears, nose, mouth, throat: DENIES: Epistaxis Respiratory: DENIES: Cough, Hemoptysis, Shortness of breath Cardiovascular: COMPLAINS OF: Lower Extremity Edema, DENIES: Chest pain, Syncope, Dyspnea on Exertion, Orthopnea Gastrointestinal: COMPLAINS OF: Diarrhea, Nausea, Vomiting, DENIES: Bloody stools, Constipation, Vomiting blood Genitourinary: DENIES: Hematuria Musculoskeletal: COMPLAINS OF: Joint Swelling (both legs/knees), Decreased range of motion (left knee) Integumentary: DENIES: Rash Hematologic/Lymphatics: DENIES: Lymphadenopathy (nonpalpable) Immunologic/Allergic: DENIES: Urticaria Neurologic: COMPLAINS OF: Paresthesias (in her swollen legs), DENIES: Localized weakness, Seizures Psychiatric: DENIES: Confusion, Hallucinations, Agitation Past Family Social History Coded Allergies: No Known Allergies (Verified , 10/16/16) Past Medical History * Abdominal and pelvic adenopathy on current CT scan, and mediastinal adenopathy on 2013 CT scan * COPD * Hypertension * History of colon polyps * Chronic pain, legs/knees * Osteoarthritis * Depression * 2 para 1 AB 1 . Past Surgical History No major surgery in the past. . Reported Medications Flagyl (Metronidazole) 500 Mg Tab 500 Mg PO TID Citalopram (Citalopram Hydrobromide) 10 Mg Tab 10 Mg PO DAILY Hydroxyzine HCl 25 Mg Tab 25 Mg PO QID . Current Medications Medications (Trade) Dose Ordered Sig/Sendy Route Start Time Stop Time Status Last Admin (NS 1000 ml Inj) 1,000 ml @ 100 mls/hr Q10H IV 10/16/16 17:00 10/17/16 04:30 (NS Flush) 2 ml UNSCH PRN IV FLUSH 10/16/16 16:30 (NS Flush) 2 ml BID IV FLUSH 10/16/16 21:00 (Tylenol) 650 mg Q4H PRN PO 10/16/16 16:30 10/17/16 04:29 (Zofran Inj) 4 mg Q6H PRN IVP 10/16/16 16:30 (Milk Of Magnesia Liq) 30 ml Q12H PRN PO 10/16/16 16:30 (Narcan Inj) 0.4 mg UNSCH PRN IV 10/16/16 16:30 (CeleXA) 10 mg DAILY PO 10/17/16 09:00 10/17/16 08:16 (Atarax) 25 mg QID PO 10/17/16 09:00 10/17/16 08:16 Family History Mother of Colon cancer and alcoholism. Father of "intestinal cancer" and alcoholism. Brother had Colon cancer. . Substance Use Tobacco: One pack per day for many years, reports that she quit last week Alcohol: Rare Prescription med abuse: None Illicits: None . Psychosocial History The patient was born and raised in [place], [place], and moved to [place] more than 30 years ago. She has been and twice, and is currently living alone. She has one daughter, Mercedes Ramos. 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 . Spiritual/Cultural Factors The patient reports that spirituality is quite important to her, although she is not affiliated with any particular denomination or clergy. She is open to visits from the internal affairs commander. . Health Care Surrogate: Copy in medical record Date completed: 10/17/16 . Health Care Surrogate(s): Granddaughter Radha Casillas . Documented care wishes: The patient says she has a living will, but is not sure where it is. . Today's verbally stated goals: The patient is certain that she would not want to be resuscitated or kept alive on machines. She is somewhat leery of having any additional workup or surgery, but she is willing to undergo additional scans, scopes, and even biopsy in order to see "what type of problem this really is and whether there is any good treatment." . Family/friends goals: The patient's daughter Juany Ramos is also interested in having the patient undergo additional workup and perhaps biopsy. . Ethical and Legal Issues There are no ethical issues that would impact her care or decision-making at this time. The patient has capacity for decision making, and she has named her granddaughter Sharan Casillas as healthcare surrogate. . Physical Exam Vital Signs Date Time Temp Pulse Resp B/P Pulse Ox O2 Delivery O2 Flow Rate FiO2 10/17/16 11:50 97.9 71 16 131/67 98 10/17/16 07:46 98.0 70 18 130/65 99 10/17/16 05:55 18 10/17/16 04:22 98.4 79 18 148/67 99 10/17/16 00:26 97.8 79 18 144/65 100 10/16/16 19:53 83 20 132/63 100 10/16/16 18:29 98.0 84 16 119/58 99 Room Air 10/16/16 14:56 88 20 135/73 98 Room Air 10/16/16 10/17/16 19:00 07:00 # Voids 1 Exam CONSTITUTIONAL/GENERAL: This is a thin patient, in no apparent distress. TUBES/LINES/DRAINS: Peripheral IV SKIN: No jaundice, rashes, or lesions. Ecchymoses on upper extremities. No wounds seen anteriorly. Skin temperature appropriate. Not diaphoretic. HEAD: Atraumatic. Normocephalic. EYES: Pupils equal and round and reactive. Extraocular motions intact. No scleral icterus. No injection or drainage. Fundi not examined. ENT: Hearing grossly normal. Nose without bleeding or purulent drainage. Throat without visible erythema, exudates, masses, or lesions. NECK: Trachea midline. Supple, nontender. No palpable thyroid enlargement or nodularity. CARDIOVASCULAR: Regular rate and rhythm without murmurs, gallops, or rubs. No JVD. Peripheral pulses symmetric. RESPIRATORY/CHEST: Symmetric, unlabored respirations. Clear to auscultation. Breath sounds equal bilaterally. No wheezes, rales, or rhonchi. GASTROINTESTINAL: Abdomen soft, non-tender, nondistended. No hepato-splenomegaly , or palpable masses. No guarding. Bowel sounds present. GENITOURINARY: Without palpable bladder distension. MUSCULOSKELETAL: Extremities without clubbing, but there is edema involving the thighs and knees bilateral. She has some tenderness in both knees, worse on the left. No calf tenderness. No mottling or clubbing. LYMPHATICS: No palpable cervical or supraclavicular adenopathy. NEUROLOGICAL: Awake and alert. Motor and sensory grossly within normal limits. Follows commands. Cognitively sharp. Moves all extremities. PSYCHIATRIC: No obvious anxiety/depression. no apparent hallucinations or other psychotic thought process. . Diagnostic Tests Laboratory Laboratory Tests Test 10/16/16 10/16/16 10/16/16 10/17/16 12:45 12:50 15:10 04:50 White Blood Count 8.6 TH/MM3 6.3 TH/MM3 (4.0-11.0) (4.0-11.0) Red Blood Count 5.76 MIL/MM3 4.82 MIL/MM3 (4.00-5.30) (4.00-5.30) Hemoglobin 13.0 GM/DL 10.9 GM/DL (11.6-15.3) (11.6-15.3) Hematocrit 40.9 % 34.2 % (35.0-46.0) (35.0-46.0) Mean Corpuscular Volume 70.9 FL 71.0 FL (80.0-100.0) (80.0-100.0) Mean Corpuscular Hemoglobin 22.5 PG 22.6 PG (27.0-34.0) (27.0-34.0) Mean Corpuscular Hemoglobin 31.7 % 31.9 % Concent (32.0-36.0) (32.0-36.0) Red Cell Distribution Width 17.2 % 17.0 % (11.6-17.2) (11.6-17.2) Platelet Count 312 TH/MM3 256 TH/MM3 (150-450) (150-450) Mean Platelet Volume 7.9 FL 7.6 FL (7.0-11.0) (7.0-11.0) Neutrophils (%) (Auto) 74.6 % 56.3 % (16.0-70.0) (16.0-70.0) Lymphocytes (%) (Auto) 14.5 % 29.4 % (9.0-44.0) (9.0-44.0) Monocytes (%) (Auto) 9.2 % (0.0-8.0) 10.9 % (0.0-8.0) Eosinophils (%) (Auto) 1.2 % (0.0-4.0) 2.9 % (0.0-4.0) Basophils (%) (Auto) 0.5 % (0.0-2.0) 0.5 % (0.0-2.0) Neutrophils # (Auto) 6.4 TH/MM3 3.5 TH/MM3 (1.8-7.7) (1.8-7.7) Lymphocytes # (Auto) 1.3 TH/MM3 1.9 TH/MM3 (1.0-4.8) (1.0-4.8) Monocytes # (Auto) 0.8 TH/MM3 0.7 TH/MM3 (0-0.9) (0-0.9) Eosinophils # (Auto) 0.1 TH/MM3 0.2 TH/MM3 (0-0.4) (0-0.4) Basophils # (Auto) 0.0 TH/MM3 0.0 TH/MM3 (0-0.2) (0-0.2) CBC Comment AUTO DIFF AUTO DIFF Differential Comment AUTO DIFF AUTO DIFF CONFIRMED CONFIRMED Ovalocytes 1+ (NORMAL) 1+ (NORMAL) Sodium Level 133 MEQ/L 137 MEQ/L (136-145) (136-145) Potassium Level 4.3 MEQ/L 3.8 MEQ/L (3.5-5.1) (3.5-5.1) Chloride Level 96 MEQ/L 104 MEQ/L (98-107) (98-107) Carbon Dioxide Level 27.5 MEQ/L 25.2 MEQ/L (21.0-32.0) (21.0-32.0) Anion Gap 10 MEQ/L (5-15) 8 MEQ/L (5-15) Blood Urea Nitrogen 10 MG/DL (7-18) 5 MG/DL (7-18) Creatinine 0.67 MG/DL 0.34 MG/DL (0.50-1.00) (0.50-1.00) Estimat Glomerular Filtration 109 ML/MIN 239 ML/MIN Rate (>89) (>89) Random Glucose 114 MG/DL 70 MG/DL (74-106) (74-106) Calcium Level 9.4 MG/DL 8.4 MG/DL (8.5-10.1) (8.5-10.1) Total Bilirubin 0.4 MG/DL (0.2-1.0) Aspartate Amino Transf 17 U/L (15-37) (AST/SGOT) Alanine Aminotransferase 15 U/L (10-53) (ALT/SGPT) Alkaline Phosphatase 98 U/L (45-117) Total Creatine Kinase 37 U/L (26-192) Total Protein 8.3 GM/DL (6.4-8.2) Albumin 3.0 GM/DL (3.4-5.0) Lipase 51 U/L (73-393) Lactic Acid Level 1.5 mmol/L (0.4-2.0) Urine Color RED (YELLW/STRAW) Urine Turbidity HAZY (CLEAR) Urine pH 5.5 (5.0-8.5) Urine Specific [place] 1.023 (1.002-1.035) Urine Protein TRACE mg/dL (NEG-TRACE) Urine Glucose (UA) NEG mg/dL (NEG) Urine Ketones 10 mg/dL (NEG) Urine Occult Blood NEG (NEG) Urine Nitrite NEG (NEG) Urine Bilirubin NEG (NEG) Urine Urobilinogen LESS THAN 2.0 MG/DL (LESS THAN 2.0) Urine Leukocyte Esterase TRACE (NEG) Urine RBC LESS THAN 1 /hpf (0-3) Urine WBC 2 /hpf (0-5) Urine Bacteria RARE /hpf (NONE) Urine Hyaline Casts 7 /lpf (RARE) Urine Mucus FEW /lpf (OCC) Microscopic Urinalysis Comment CULT NOT INDICATED Platelet Estimate NORMAL (NORMAL) Platelet Morphology Comment NORMAL (NORMAL) Helmet Cells OCC (NORMAL) Acanthocytes OCC (NORMAL) Test 10/17/16 11:27 Stool C. difficile Toxin (PCR) NEGATIVE (NEGATIVE) Stl C. difficile Toxin PRESUMPTIVE Epiderm 027 NEGATIVE (NEGATIVE) Result Diagram: 10/17/16 0450 10/17/16 0450 Imaging Last Impressions Abdomen/Pelvis CT 10/16/16 5485 Signed Impressions: Service Date/Time: Sunday, October 16, 2016 15:27 - CONCLUSION: 1. There is several nonspecific para-aortic and retroperitoneal lymph nodes in the mid to lower abdomen bilaterally. 2. There are prominent bilateral obturator lymph nodes deep in the pelvis. There is also a few prominent bilateral inguinal lymph nodes. These findings are nonspecific. However, neoplastic disease such as lymphoma would be a consideration. Therefore, recommend a whole body PET/CT to evaluate for focal hypermetabolic activity. Todd J. Siragusa, MD Chest X-Ray 10/16/16 0000 Signed Impressions: Service Date/Time: Sunday, October 16, 2016 12:47 - CONCLUSION: No acute disease. Gabriel Figueredo MD FACR Patient/Family Conference Present at Family Conference: The patient and Nayan Harris [employer] present, and henrik Long by phone. . Family Conference Time (mins): 50 Family Conference Location: Bedside, Telephone Issues Discussed: * Palliative care role, purpose, approach * Additional medical, psychosocial, and spiritual history * Patients general health, functional status, and cognitive changes in the months leading up to the current hospitalization * Patient/family understanding of the current medical problems * Patient/family understanding of prognosis * Patients goals of care as best understood from advance directives and/or conversations and/or values * Current medical treatment options and benefits/burdens of those options * Likely scenarios comparing ongoing aggressive care with a transition to comfort measures only * Questions answered to the best of my ability * Palliative care contact information provided The patient is certain that she would not want to be resuscitated or kept alive on machines. She is somewhat leery of having any additional workup or surgery, but she is willing to undergo additional scans, scopes, and even biopsy in order to see "what type of problem this really is and whether there is any good treatment." . Assessment and Plan Disease Oriented Problem List: (1) abdominal and pelvic adenopathy on current CT scan, and mediastinal adenopathy on 2013 CT of the chest (2) weight loss, marked (3) COPD (4) hypertension (5) history of colon polyps (6) osteoarthritis (7) chronic pain legs/knees (8) depression Symptom Scale: (1) pain 0-10 Scale: 3 (2) depression 0-10 Scale: 1 Pertinent Non-Medical Issues Psychosocial: , lives alone, one daughter, not working the past 6 months. Spiritual: The patient reports that spirituality is quite important to her, although she is not affiliated with any particular denomination or clergy. She is open to visits from the internal affairs commander. Legal: The patient has capacity for decision-making at this time. She is designating her granddaughter Sharan Casillas as her healthcare surrogate today. Ethical issues impacting care: None. . . Important Contacts Granddaughter (HCS) Sharan Casillas [phone] Daughter Juany Ramos [phone] . Prognosis With the marked weight loss, worsening weakness and lower extremity edema, loss of appetite, and widespread adenopathy on CT scan, it is likely that this patient has some form of malignancy. Prognosis will depend on what the additional workup and possible biopsy reveals. . Code Status: No Code Plan * DO NOT RESUSCITATE * DECISION-MAKING: The patient has capacity for decision-making at this time. She is designating her granddaughter Sharan Casillas as her healthcare surrogate today. * GOALS: The patient is certain that she would not want to be resuscitated or kept alive on machines. She is somewhat leery of having any additional workup or surgery, but she is willing to undergo additional scans, scopes, and even biopsy in order to see "what type of problem this really is and whether there is any good treatment." She is looking forward to input from oncology. * SYMPTOMS: The patient has not required much in the way of opiates for her pain , and she is fairly comfortable while in her hospital bed. She says her depression and then the anxiety is not worse recently. No new medication recommendations at this time. * Lighting Adviser contacted regarding visiting the patient. * Further discussions will depend on the pending surgery and oncology evaluations and recommendations, and Palliative Care will continue to follow the patient.. . Time Spent Total Floor Time (mins): 79 Face to Face Time (mins): 61 >50% Counseling/Coord of Care: Yes Thank you for the opportunity to participate in the care of Ms. Castro. Attestation To help prompt me to consider important information that might be impacting today's encounter and assessment, information from prior notes written by myself or my colleagues may have been "brought forward" into today's note. My signature on this note, however, is an attestation that I personally performed the exam, history, and/or decision-making noted today, and, unless otherwise indicated, the interactions with patient, family, and staff as well as the review of records all occurred today. I also attest that the listed assessment and stated plan reflect my best clinical judgment today based on the combination of historical information, prior notes, and today's exam/ interactions. When time spent is documented, it refers only to time spent today by the signer, or if indicated, combined time spent today by collaborating physician/nurse practitioner. Yuki Dobbs MD October 17, 2016 15:06
[2016-10-17 15:24] VITALS: BP 130/67; PULSE 68; RESP 16; TEMP 98.3; O2SAT 100
[2016-10-17 19:00] VITALS: BP 155/70; PULSE 64; RESP 20; TEMP 96.8; O2SAT 100
[2016-10-18] VITALS (7 sets, daily range): BP systolic 129–150; BP diastolic 63–71; PULSE 62–81; RESP 17–20; TEMP 96.3–98; O2SAT 96–100
--- NOTE | 2016-10-18 00:46 | PD.ONC.PN ---
Subjective Subjective Remarks lymphadenopathy appears to be non-specific. No biopsy at this time Full consult note to follow. Objective Data Date Time Temp Pulse Resp B/P Pulse Ox O2 Delivery O2 Flow Rate FiO2 10/17/16 19:00 96.8 64 20 155/70 100 10/17/16 15:24 98.3 68 16 130/67 100 10/17/16 11:50 97.9 71 16 131/67 98 10/17/16 07:46 98.0 70 18 130/65 99 10/17/16 05:55 18 10/17/16 04:22 98.4 79 18 148/67 99 Result Diagram: 10/17/16 0450 10/17/16 0450 Laboratory Results Laboratory Tests Test 10/17/16 10/17/16 04:50 11:27 White Blood Count 6.3 TH/MM3 Red Blood Count 4.82 MIL/MM3 Hemoglobin 10.9 GM/DL Hematocrit 34.2 % Mean Corpuscular Volume 71.0 FL Mean Corpuscular Hemoglobin 22.6 PG Mean Corpuscular Hemoglobin 31.9 % Concent Red Cell Distribution Width 17.0 % Platelet Count 256 TH/MM3 Mean Platelet Volume 7.6 FL Neutrophils (%) (Auto) 56.3 % Lymphocytes (%) (Auto) 29.4 % Monocytes (%) (Auto) 10.9 % Eosinophils (%) (Auto) 2.9 % Basophils (%) (Auto) 0.5 % Neutrophils # (Auto) 3.5 TH/MM3 Lymphocytes # (Auto) 1.9 TH/MM3 Monocytes # (Auto) 0.7 TH/MM3 Eosinophils # (Auto) 0.2 TH/MM3 Basophils # (Auto) 0.0 TH/MM3 CBC Comment AUTO DIFF Differential Comment AUTO DIFF CONFIRMED Platelet Estimate NORMAL Platelet Morphology Comment NORMAL Ovalocytes 1+ Helmet Cells OCC Acanthocytes OCC Sodium Level 137 MEQ/L Potassium Level 3.8 MEQ/L Chloride Level 104 MEQ/L Carbon Dioxide Level 25.2 MEQ/L Anion Gap 8 MEQ/L Blood Urea Nitrogen 5 MG/DL Creatinine 0.34 MG/DL Estimat Glomerular Filtration 239 ML/MIN Rate Random Glucose 70 MG/DL Calcium Level 8.4 MG/DL Stool C. difficile Toxin (PCR) NEGATIVE Stl C. difficile Toxin PRESUMPTIVE Epiderm 027 NEGATIVE Administered Medications Medications (Trade) Dose Ordered Sig/Sendy Route PRN Reason Start Time Stop Time Status Last Admin Dose Admin Sodium Chloride (NS 1000 ml Inj) 1,000 ml @ 100 mls/hr Q10H IV 10/16/16 17:00 10/17/16 14:36 Sodium Chloride (NS Flush) 2 ml BID IV FLUSH 10/16/16 21:00 10/17/16 20:21 Acetaminophen (Tylenol) 650 mg Q4H PRN PO Fever, headache, Pain 1-4 10/16/16 16:30 10/17/16 23:43 Citalopram Hydrobromide (CeleXA) 10 mg DAILY PO 10/17/16 09:00 10/17/16 08:16 Hydroxyzine HCl (Atarax) 25 mg QID PO 10/17/16 09:00 10/17/16 20:21 Kelvin Pitt MD October 18, 2016 00:46
--- NOTE | 2016-10-18 08:25 | HHI.PR ---
Subjective Remarks Follow-up for gastroenteritis. The patient states she had a rough night after drinking the bowel prep. She complains of "diarrhea" with doing bowel prep. She was able to tolerate clear liquids yesterday with no vomiting. She denies any abdominal pain or dysuria. Objective Vitals Vital Signs Date Time Temp Pulse Resp B/P Pulse Ox O2 Delivery O2 Flow Rate FiO2 10/18/16 07:36 96.7 72 20 130/71 99 10/18/16 04:16 18 10/18/16 04:00 96.3 67 18 150/70 99 10/18/16 00:00 96.9 62 18 147/67 97 10/17/16 19:00 96.8 64 20 155/70 100 10/17/16 15:24 98.3 68 16 130/67 100 10/17/16 11:50 97.9 71 16 131/67 98 I/O 10/17/16 10/17/16 10/17/16 10/18/16 10/18/16 10/18/16 07:00 15:00 23:00 07:00 15:00 23:00 Intake Total 240 ml Balance 240 ml Intake Oral 240 ml # Voids 5 2 # Bowel Movements 3 5 Result Diagram: 10/17/16 0450 10/17/16 0450 Imaging Last Impressions Abdomen/Pelvis CT 10/16/16 1155 Signed Impressions: Service Date/Time: Sunday, October 16, 2016 15:27 - CONCLUSION: 1. There is several nonspecific para-aortic and retroperitoneal lymph nodes in the mid to lower abdomen bilaterally. 2. There are prominent bilateral obturator lymph nodes deep in the pelvis. There is also a few prominent bilateral inguinal lymph nodes. These findings are nonspecific. However, neoplastic disease such as lymphoma would be a consideration. Therefore, recommend a whole body PET/CT to evaluate for focal hypermetabolic activity. Todd Blanco MD Chest X-Ray 10/16/16 0000 Signed Impressions: Service Date/Time: Sunday, October 16, 2016 12:47 - CONCLUSION: No acute disease. Gabriel Figueredo MD FACR Objective Remarks GENERAL: Well-developed well-nourished. In no acute distress. SKIN: Warm and dry. No lesions noted. HEENT: Normocephalic. Pupils equal and round. Mucous membranes pink and moist. CARDIOVASCULAR: Regular rate and rhythm. No murmur appreciated. RESPIRATORY: No accessory muscle use. Clear to auscultation. Breath sounds equal bilaterally. GASTROINTESTINAL: Abdomen soft, lower abdominal TTP, nondistended. Bowel sounds x4. MUSCULOSKELETAL: No obvious deformities. No clubbing or cyanosis. No edema. NEUROLOGICAL: Awake and alert. No focal neurological deficits. Moves upper and lower extremities spontaneously. Normal speech. PSYCHIATRIC: Appropriate mood and affect; insight and judgment normal. A/P Problem List: (1) Lymphadenopathy, abdominal ICD Code: R59.0 Status: Acute (2) Acute gastroenteritis ICD Code: K52.9 Status: Acute Assessment and Plan Ms. Castro is a pleasant 56 year old female with no significant medical history presents to the ED due to 3 week duration of diarrhea and 1-2 day duration of nausea, vomiting. She reports significant family history of GI malignancies. She has lost about 14 lbs over the last 3-4 weeks. - Acute gastroenteritis - Diarrhea, nausea, vomiting. - C. difficile negative, further stool studies pending - GI consulted, plan EGD and colonoscopy - Diet per GI - Antiemetics and IVF - Abdominal lymphadenopathy Reviewed: Abdominal CT showed several nonspecific para-aortic and retroperitoneal lymph nodes, prominent bilateral obturator lymph nodes deep in the pelvis, prominent bilateral inguinal lymph nodes; these findings are nonspecific, however neoplastic disease such as lymphoma would be a consideration. - Consulted General Surgery, discussed with Dr. Ahn. Suspect lymph nodes are reactive, and recommends against lymph node biopsy at this time. - Consulted oncology, currently recommends against biopsy of this time. - Consulted palliative care to clarify goals of care DNR. SCDs. Discharge Planning Follow-up specialist recommendations. PT norm. Case management consult. Adin Crawford October 18, 2016 08:25 Adin Crawford October 18, 2016 08:25
[2016-10-18] MEDS: hydrOXYzine HCL 25 MG TAB PO SCH ×4 (08:33→20:26)
[2016-10-18] MEDS: SODIUM CHLORIDE 0.9% FLUSH 10 ML FLUSH IV FLUSH SCH ×2 (08:33→20:27)
[2016-10-18] MEDS: SODIUM CHLOR 0.9% 1000 ML INJ 1,000 ML IV SCH ×2 (08:33→18:13)
[2016-10-18] MEDS: CITALOPRAM HYDROBROMIDE 20 MG TAB PO SCH (08:34)
--- NOTE | 2016-10-18 12:59 | HHI.GIFU ---
Subjective Remarks Pt resting in bed, in no distress. She is refusing to do bowel prep and colonoscopy. When offered EGD she said if she has to be NPO then she refuses. She is asking for food. Denies n/v, diarrhea, abd pain. Objective Vitals I&O Vital Signs Date Time Temp Pulse Resp B/P Pulse Ox O2 Delivery O2 Flow Rate FiO2 10/18/16 12:05 97.5 72 18 150/65 100 10/18/16 08:35 97.1 81 17 129/70 96 10/18/16 07:36 96.7 72 20 130/71 99 10/18/16 04:16 18 10/18/16 04:00 96.3 67 18 150/70 99 10/18/16 00:00 96.9 62 18 147/67 97 10/17/16 19:00 96.8 64 20 155/70 100 10/17/16 15:24 98.3 68 16 130/67 100 I/O 10/17/16 10/17/16 10/17/16 10/18/16 10/18/16 10/18/16 07:00 15:00 23:00 07:00 15:00 23:00 Intake Total 240 ml Balance 240 ml Intake Oral 240 ml # Voids 5 2 # Bowel Movements 3 5 Laboratory Date/Time Procedure Status Source Growth 10/17/16 11:27 Cryptosporidium Exam Received Stool Stool Pending 10/17/16 11:27 Giardia Antigen (JASON) Received Stool Stool Pending 10/17/16 11:27 Acid Fast Stain Received Stool Stool Pending 10/17/16 11:27 Mycobacterial Culture Received Stool Stool Pending Imaging Last Impressions Abdomen/Pelvis CT 10/16/16 1155 Signed Impressions: Service Date/Time: Sunday, October 16, 2016 15:27 - CONCLUSION: 1. There is several nonspecific para-aortic and retroperitoneal lymph nodes in the mid to lower abdomen bilaterally. 2. There are prominent bilateral obturator lymph nodes deep in the pelvis. There is also a few prominent bilateral inguinal lymph nodes. These findings are nonspecific. However, neoplastic disease such as lymphoma would be a consideration. Therefore, recommend a whole body PET/CT to evaluate for focal hypermetabolic activity. Todd Blanco MD Chest X-Ray 10/16/16 0000 Signed Impressions: Service Date/Time: Sunday, October 16, 2016 12:47 - CONCLUSION: No acute disease. Gabriel Figueredo MD FACR Physical Exam HEENT: EOMI; normocephalic; atraumatic; no jaundice. CHEST: Chest is clear to auscultation and percussion. CARDIAC: Regular rate and rhythm with no murmur gallop or rubs. ABDOMEN: Soft, nondistended, nontender; no hepatosplenomegaly; bowel sounds are present in all four quadrants. EXTREMITIES: No clubbing, cyanosis, or edema. SKIN: Normal; no rash; no jaundice. CERTIFIED ADAPTIVE PHYSICAL EDUCATOR: No focal deficits; alert and oriented times three. Assessment and Plan Plan Impression: Diarrhea with Abnormal CT scan with lymphadenopathy. Pt is refusing bowel prep and colonoscopy. She refused EGD when informed that she would have to be NPO the morning of. She says she feels better, her appetite has returned. Denies n/v, pain, diarrhea. History of colon polyps. Family history of gastric cancer Plan: - KAL - f/u with GI as outpt in 2 wks - GI will sign off, please reconsult as needed This pt seen by myself and Dr Cherry and this note is written on his behalf Nory Gomez [facility] October 18, 2016 12:59
--- NOTE | 2016-10-18 14:31 | HHI.HCPN ---
Met with Ms. Castro for follow-up. MOISÉS Sullivan also present. Ms Castro is currently lying in bed eating lunch. Presents appropriate in conversation, alert , oriented, and able to make her needs known. Confirms refusal to continue with EGD and colonoscopy prep. States "whatever is growing in me will continue to grow and it will be between me and God". She does not wish to have further testing done. She tells me she is currently living with her sister and is waiting on her disability to kick in. States her daughter "is cutting her off because shes mad at me". Daughter and grandchildren live locally in [facility], although she reports she does not have help from them. Remains adamant on NO CODE, yellow community DNR on chart to D/C home with her. Becomes focused on when she will be able to go home. Again confirms she does not wish to have any further medical work up stating "I can't go through what I went through last night" pertaining to colonoscopy prep. Palliative care number provided. Palliative care will continue to follow throughout hospitalization. Sugar Myers, SENIOR PROGRAM MANAGER October 18, 2016 14:31 Sugar Myers, VIRGILIO October 18, 2016 14:31
[2016-10-18] MEDS: ACETAMINOPHEN 325 MG TAB PO PRN (20:27)
[2016-10-19 00:29] VITALS: BP 126/60; PULSE 67; RESP 20; TEMP 98.5; O2SAT 100
[2016-10-19 04:07] VITALS: BP 178/79; PULSE 70; RESP 22; TEMP 98.5; O2SAT 99
[2016-10-19] MEDS: SODIUM CHLOR 0.9% 1000 ML INJ 1,000 ML IV SCH ×2 (05:00→15:12)
--- NOTE | 2016-10-19 06:09 | MB ---
cc: NAZANIN HARPER DATE OF 1960. DATE OF CONSULTATION 10/18/2016. REASON FOR CONSULTATION The patient presents with weight loss, loss of appetite and lymphadenopathy on CT scan. CHIEF COMPLAINT Pain in the lower extremities as well as upper extremities. HISTORY OF PRESENT ILLNESS Ms. Castro is a 56-year-old female who has not had followup with a primary care physician for more than 10 years. She presented to the emergency department with one week symptoms of nausea, vomiting, weight loss. She states that the weight loss has been occurring for almost six months. She has not had any night sweats. She does not feel like eating. He she denies any headaches, no blurry vision. No chest pain. No shortness of breath. She complains of pain all over. The patient has a family history significant for colon cancer. Multiple family members had colon cancer. There is also a history of esophageal cancer. She does smoke cigarettes. She does not drink alcohol. No illicit drug use. She had a colonoscopy approximately 10 years ago. She tells me that she was found to have polyps. She never had a follow-up colonoscopy. The patient on admission underwent a chest x-ray which did not show any acute abnormality. She had an abdominal CT scan which showed nonspecific retroperitoneal lymph nodes in the mid to lower abdomen. These were very small, anywhere from 6-7 mm. There were some popliteal lymph nodes in the sidewalls of the pelvis bilaterally. On the right-side there is a lymph node measuring 2.4 cm. On the left side the lymph node was 2.6 cm. Hematology has been consulted to make further recommendations. REVIEW OF SYSTEMS A comprehensive 14-point review of systems was completed which is negative except as described in the HPI. PAST MEDICAL HISTORY History of osteoarthritis. History of colonic polyps. PAST SURGICAL HISTORY Colonoscopy many years ago. MEDICATIONS Reviewed in the EMR. ALLERGIES No known drug allergies. FAMILY HISTORY Mother at colon cancer. Father had stomach cancer. Brother had colon cancer. SOCIAL HISTORY She admits to smoking 1-1/2 packs per day for 40 years and quit one week ago. She does not drink alcohol. No illicit drug use. PHYSICAL EXAMINATION VITAL SIGNS: Blood pressure is 126/60, pulse is in the 60s, temperature is 98.5, respiratory rate is 12. GENERAL: Cachectic female in no apparent distress. HEENT: Pupils are equal, round, react to light. EOMI. No oral thrush. No oral lesions. NECK: Supple. No JVD. No bruits. No lymphadenopathy. CHEST: Clear to auscultation bilaterally. CARDIAC: S1-S2 regular rhythm. ABDOMEN: Soft, nontender, nondistended. Bowel sounds are present. EXTREMITIES: Without any edema, erythema or cyanosis. She has significant tenderness on touch on the bilateral lower extremities and she is not letting me touch her skin on the lower extremities. She states that it is extremely tender. She is also unable to lift her left arm as it is painful. NEURO: No focal deficits. PSYCHIATRIC: Mood and affect is appropriate. LABORATORY DATA WBC 6.3, hemoglobin 10.9, MCV 71.0, platelet count 256. Serum chemistries show sodium 137, potassium 3.8, CO2 25.2, BUN is 5, creatinine 0.34, GFR is 239, calcium is 8.4. Urine shows trace protein, urine bacteria, trace leukocyte esterase. IMAGING Reviewed in the EMR. ASSESSMENT AND PLAN This is a 56-year-old female with no medical followup for quite some time who presents with loss of appetite, loss of weight, decreased energy, feeling unwell and pain all over. 1. The patient was found to have nonspecific lymphadenopathy on abdominal CT scan. There can be many reasons for underlying lymphadenopathy. We should make sure that she does not have any underlying infection such as hepatitis or HIV. We will obtain hepatitis and HIV panel. We will check LDH, obtain a serum protein electrophoresis. She does not have any leukopenia or thrombocytopenia. She has mild anemia with microcytosis. I would hold off on biopsy of the lymphadenopathy at this time. She has not had a colonoscopy. She has a strong family history of colon cancer. She was found to have colon polyps many years ago, thus I would recommend a colonoscopy for further evaluation. 2. Microcytic anemia. Obtain anemia studies. Obtain a stool hemoccult. Thank you for allowing me to participate in the care of this patient. I will continue to follow this patient along. MD ADI Smith/VIJAYA /12:55 AM /5:49 AM JOHANNA
[2016-10-19 07:33] VITALS: BP 142/65; PULSE 69; RESP 17; TEMP 97.5; O2SAT 99
[2016-10-19] MEDS: SODIUM CHLORIDE 0.9% FLUSH 10 ML FLUSH IV FLUSH SCH ×2 (08:54→21:26)
[2016-10-19] MEDS: CITALOPRAM HYDROBROMIDE 20 MG TAB PO SCH (08:55)
[2016-10-19] MEDS: hydrOXYzine HCL 25 MG TAB PO SCH ×4 (08:55→21:26)
[2016-10-19 09:23] LABS: ALBUMIN SPE 2.81 GM/DL (3.50-5.00)
[2016-10-19 09:24] LABS: ALPHA 1 GLOBULIN 0.28 GM/DL (0.11-0.29); ALPHA 2 GLOBULIN 0.73 GM/DL (0.22-1.00); BETA GLOBULINS (SPE) 0.55 GM/DL (0.53-1.03)
[2016-10-19 11:40] VITALS: BP 142/65; PULSE 69; RESP 17; TEMP 97.5; O2SAT 99
[2016-10-19] MEDS ORDERED: PROPOFOL 200 MG/20 ML AMP IV ONE (13:50)
--- NOTE | 2016-10-19 14:11 | HHI.GIFU ---
Subjective Remarks Immediate postop note: EGD with biopsy and Flexible sigmoidoscopy Indication: Diarrhea nausea and vomiting abdominal pain, abnormal CT meds: MAC Findings: Esophagus: normal Stomach: mild gastritis Bx from antrum Duodenum: normal Flex sig to 40cm suboptimal prep. No other abnormalities seen. Imp: Gastritis. Poor prep. Rec: Reprep for colonoscopy tomorrow. Objective Vitals I&O Vital Signs Date Time Temp Pulse Resp B/P Pulse Ox O2 Delivery O2 Flow Rate FiO2 10/19/16 11:40 97.5 69 17 142/65 99 10/19/16 07:33 97.5 69 17 142/65 99 10/19/16 04:07 98.5 70 22 178/79 99 10/19/16 00:29 98.5 67 20 126/60 100 10/18/16 21:36 16 10/18/16 19:20 98.0 70 20 139/65 97 10/18/16 16:00 96.9 68 18 142/63 99 I/O 10/18/16 10/18/16 10/18/16 10/19/16 10/19/16 10/19/16 07:00 15:00 23:00 07:00 15:00 23:00 Intake Total 240 ml 1000 ml Balance 240 ml 1000 ml Intake Oral 240 ml IV Total 1000 ml # Voids 2 3 2 # Bowel Movements 5 Laboratory Laboratory Tests Test 10/19/16 05:27 Haptoglobin 253 Lactate Dehydrogenase 124 C-Reactive Protein 3.95 Total Protein 6.0 Albumin 2.81 Albumin/Globulin Ratio 0.88 Vpjnw-4-Vdqdrjxav 0.28 Oagra-7-Jelzctzvj 0.73 Beta Globulins 0.55 Gamma Globulins 1.63 Electrophoresis Pathologist Comment Thyroid Stimulating Hormone 5.510 3rd Gen Immunoglobulin G Total 1650 Immunoglobulin A 125 Immunoglobulin M 42 Hepatitis B Surface Antigen NEGATIVE Hepatitis B Core IgM Antibody NEGATIVE Hepatitis C Antibody NEGATIVE HIV (1&2) Antibody NEGATIVE Date/Time Procedure Status Source Growth 10/17/16 11:27 Cryptosporidium Exam Received Stool Stool Pending 10/17/16 11:27 Giardia Antigen (JASON) Received Stool Stool Pending 10/17/16 11:27 Cancelled Stool Stool Physical Exam HEENT: EOMI; normocephalic; atraumatic; no jaundice. CHEST: Chest is clear to auscultation and percussion. CARDIAC: Regular rate and rhythm with no murmur gallop or rubs. ABDOMEN: Soft, nondistended, nontender; no hepatosplenomegaly; bowel sounds are present in all four quadrants. EXTREMITIES: No clubbing, cyanosis, or edema. SKIN: Normal; no rash; no jaundice. WINDOW INSTALLER: No focal deficits; alert and oriented times three. Assessment and Plan Plan Impression: Diarrhea, nausea and vomiting. Abnormal CT. Family history of colon cancer. EGD shows gastritis. Flex sig poor prep Plan: Reprep for colonoscopy for tomorrow. Clear liquid diet. Mag citrate and dulcolax for prep. Mickey Cherry MD October 19, 2016 14:11
[2016-10-19 15:23] VITALS: BP 159/86; PULSE 65; RESP 17; TEMP 97.6; O2SAT 97
--- NOTE | 2016-10-19 15:57 | HHI.PR ---
Subjective Remarks Follow-up for gastroenteritis. The patient was tolerating diet yesterday with no vomiting. She had EGD done today which showed gastritis. She is currently doing Max citrate bowel prep for colonoscopy tomorrow. She understands the need to follow-up with patient assistance. She wants some with PT today, states she has a cane and a walker at home. She would like to go home with outpatient PT at discharge. Objective Vitals Vital Signs Date Time Temp Pulse Resp B/P Pulse Ox O2 Delivery O2 Flow Rate FiO2 10/19/16 15:23 97.6 65 17 159/86 97 10/19/16 14:17 76 16 132/75 100 10/19/16 14:11 87 16 141/63 100 10/19/16 14:06 98.2 88 16 145/74 100 10/19/16 11:40 97.5 69 17 142/65 99 10/19/16 07:33 97.5 69 17 142/65 99 10/19/16 04:07 98.5 70 22 178/79 99 10/19/16 00:29 98.5 67 20 126/60 100 10/18/16 21:36 16 10/18/16 19:20 98.0 70 20 139/65 97 10/18/16 16:00 96.9 68 18 142/63 99 I/O 10/18/16 10/18/16 10/18/16 10/19/16 10/19/16 10/19/16 07:00 15:00 23:00 07:00 15:00 23:00 Intake Total 240 ml 1000 ml 300 ml Balance 240 ml 1000 ml 300 ml Intake Oral 240 ml IV Total 1000 ml 300 ml # Voids 2 3 2 # Bowel Movements 5 Result Diagram: 10/17/16 0450 10/17/16 0450 Imaging Last Impressions Abdomen/Pelvis CT 10/16/16 1155 Signed Impressions: Service Date/Time: Sunday, October 16, 2016 15:27 - CONCLUSION: 1. There is several nonspecific para-aortic and retroperitoneal lymph nodes in the mid to lower abdomen bilaterally. 2. There are prominent bilateral obturator lymph nodes deep in the pelvis. There is also a few prominent bilateral inguinal lymph nodes. These findings are nonspecific. However, neoplastic disease such as lymphoma would be a consideration. Therefore, recommend a whole body PET/CT to evaluate for focal hypermetabolic activity. Todd Blanco MD Chest X-Ray 10/16/16 0000 Signed Impressions: Service Date/Time: Sunday, October 16, 2016 12:47 - CONCLUSION: No acute disease. Gabriel Figueredo MD FACR Objective Remarks GENERAL: Well-developed well-nourished. In no acute distress. SKIN: Warm and dry. No lesions noted. HEENT: Normocephalic. Pupils equal and round. Mucous membranes pink and moist. CARDIOVASCULAR: Regular rate and rhythm. No murmur appreciated. RESPIRATORY: No accessory muscle use. Clear to auscultation. Breath sounds equal bilaterally. GASTROINTESTINAL: Abdomen soft, nontender, nondistended. Bowel sounds x4. MUSCULOSKELETAL: No obvious deformities. No clubbing or cyanosis. No edema. NEUROLOGICAL: Awake and alert. No focal neurological deficits. Moves upper and lower extremities spontaneously. Normal speech. PSYCHIATRIC: Appropriate mood and affect; insight and judgment normal. A/P Problem List: (1) Lymphadenopathy, abdominal ICD Code: R59.0 Status: Acute (2) Acute gastroenteritis ICD Code: K52.9 Status: Acute Assessment and Plan Ms. Castro is a 56 year old female with no significant medical history presents to the ED due to 3 week duration of diarrhea and 1-2 day duration of nausea, vomiting. She reports significant family history of GI malignancies. She has lost about 14 lbs over the last 3-4 weeks. - Acute gastroenteritis - Diarrhea, nausea, vomiting. Seems to be improving. Reviewed: EGD showed gastritis. Afebrile with no leukocytosis. C. difficile negative. - Further stool studies pending - GI consulted, planning for colonoscopy tomorrow due to poor prep. - Diet per GI - Antiemetics and IVF - Abdominal lymphadenopathy Reviewed: Abdominal CT showed several nonspecific para-aortic and retroperitoneal lymph nodes, prominent bilateral obturator lymph nodes deep in the pelvis, prominent bilateral inguinal lymph nodes; these findings are nonspecific, however neoplastic disease such as lymphoma would be a consideration. HIV and hepatitis panel negative. - Consulted General Surgery, discussed with Dr. Ahn. Suspect lymph nodes are reactive, and recommends against lymph node biopsy at this time. - Consulted oncology, currently recommends against biopsy of this time, laboratory workup started, follow-up additional recommendations although could likely complete workup as outpatient. - Consulted palliative care to clarify goals of care - Generalized weakness - chronic per patient - PT consulted, continue daily PT - Case management consulted for assistance with discharge planning DNR. SCDs. Discharge Planning Follow-up specialist recommendations. Will likely go home with her sister and outpatient PT. Adin Crawford October 19, 2016 15:57
[2016-10-19] MEDS ORDERED: MAGNESIUM CITRATE SOLN 300 ML BTL PO ONE (16:30)
[2016-10-19] MEDS: ACETAMINOPHEN 325 MG TAB PO PRN (17:37)
[2016-10-19 20:05] VITALS: BP 140/77; PULSE 73; RESP 19; TEMP 98; O2SAT 95
[2016-10-19] MEDS ORDERED: BISACODYL EC 5 MG TABEC PO ONE (20:30)
--- NOTE | 2016-10-19 22:39 | PD.ONC.PN ---
Subjective Subjective Remarks Patient seen earlier in the day flex sig today c/o pain all over Objective Data Date Time Temp Pulse Resp B/P Pulse Ox O2 Delivery O2 Flow Rate FiO2 10/19/16 20:05 98.0 73 19 140/77 95 10/19/16 15:23 97.6 65 17 159/86 97 10/19/16 14:17 76 16 132/75 100 10/19/16 14:11 87 16 141/63 100 10/19/16 14:06 98.2 88 16 145/74 100 10/19/16 11:40 97.5 69 17 142/65 99 10/19/16 07:33 97.5 69 17 142/65 99 10/19/16 04:07 98.5 70 22 178/79 99 10/19/16 00:29 98.5 67 20 126/60 100 10/19/16 10/19/16 10/19/16 07:00 15:00 23:00 Intake Total 300 ml Balance 300 ml Result Diagram: 10/17/16 0450 10/17/16 0450 Laboratory Results Laboratory Tests Test 10/19/16 05:27 Haptoglobin 253 MG/DL Lactate Dehydrogenase 124 U/L C-Reactive Protein 3.95 MG/DL Total Protein 6.0 GM/DL Albumin 2.81 GM/DL Albumin/Globulin Ratio 0.88 Dblws-7-Pmryutwtv 0.28 GM/DL Selqk-7-Dasfvwdvo 0.73 GM/DL Beta Globulins 0.55 GM/DL Gamma Globulins 1.63 GM/DL Electrophoresis Pathologist Comment Thyroid Stimulating Hormone 5.510 uIU/ML 3rd Gen Immunoglobulin G Total 1650 MG/DL Immunoglobulin A 125 MG/DL Immunoglobulin M 42 MG/DL Hepatitis B Surface Antigen NEGATIVE Hepatitis B Core IgM Antibody NEGATIVE Hepatitis C Antibody NEGATIVE HIV (1&2) Antibody NEGATIVE Culture Results Microbiology Date/Time Procedure Status Source Growth 10/17/16 11:27 Cryptosporidium Exam Received Stool Stool Pending 10/17/16 11:27 Giardia Antigen (JASON) Received Stool Stool Pending 10/17/16 11:27 Cancelled Stool Stool Administered Medications Medications (Trade) Dose Ordered Sig/Sendy Route PRN Reason Start Time Stop Time Status Last Admin Dose Admin Sodium Chloride (NS 1000 ml Inj) 1,000 ml @ 70 mls/hr [id number] IV 10/16/16 17:00 10/19/16 15:12 Sodium Chloride (NS Flush) 2 ml BID IV FLUSH 10/16/16 21:00 10/19/16 21:26 Acetaminophen (Tylenol) 650 mg Q4H PRN PO Fever, headache, Pain 1-4 10/16/16 16:30 10/19/16 17:37 Citalopram Hydrobromide (CeleXA) 10 mg DAILY PO 10/17/16 09:00 10/19/16 08:55 Hydroxyzine HCl (Atarax) 25 mg QID PO 10/17/16 09:00 10/19/16 21:26 Objective Remarks GENERAL: nad, cachectic. SKIN: Warm and dry. NECK: Supple, trachea midline. No JVD or lymphadenopathy. LYMPHATIC: No adenopathy. CARDIOVASCULAR: Regular rate and rhythm without murmurs. RESPIRATORY: Breath sounds equal bilaterally. No accessory muscle use. GASTROINTESTINAL: Abdomen soft, non-tender, nondistended. EXTREMITIES: No cyanosis, or edema. Assessment/Plan Problem List: (1) Intractable nausea and vomiting Status: Acute (2) Acute gastroenteritis Status: Acute (3) Lymphadenopathy, abdominal Status: Acute (4) chronic pain legs/knees Status: Acute (5) weight loss, marked Status: Acute Assessment 56-year-old female with no medical followup for quite some time who presents with loss of appetite, loss of weight, decreased energy, feeling unwell and pain all over. 1. nonspecific lymphadenopathy on abdominal CT scan. There can be many reasons for underlying lymphadenopathy. Reactive vs infectious vs auto-immune vs neoplastic - Hepatitis and HIV panel negative - CRP elevated. ESR pending, WINDY pending - SPEP --no gammopathy - GI w/u on going - recommend outpatient mammogram 2. Microcytic anemia. - Anemia studies - GI w/u Problem Qualifiers (1) Intractable nausea and vomiting: Qualified Code: R11.2 - Intractable vomiting with nausea, unspecified vomiting type Kelvin Pitt MD October 19, 2016 22:39
[2016-10-20 00:15] VITALS: BP 145/64; PULSE 65; RESP 19; TEMP 98; O2SAT 99
[2016-10-20] MEDS: SODIUM CHLOR 0.9% 1000 ML INJ 1,000 ML IV SCH (03:49)
[2016-10-20 03:58] VITALS: BP 162/65; PULSE 60; RESP 19; TEMP 98.1; O2SAT 99
[2016-10-20 07:27] VITALS: BP 149/67; PULSE 67; RESP 18; TEMP 96.9; O2SAT 99
[2016-10-20] MEDS: SODIUM CHLORIDE 0.9% FLUSH 10 ML FLUSH IV FLUSH SCH (09:00)
[2016-10-20] MEDS: hydrOXYzine HCL 25 MG TAB PO SCH ×3 (09:50→18:00)
[2016-10-20] MEDS: CITALOPRAM HYDROBROMIDE 20 MG TAB PO SCH (09:50)
[2016-10-20 10:50] VITALS: BP 135/64; PULSE 68; RESP 16; TEMP 98.1; O2SAT 99
[2016-10-20 11:08] LABS: TRANSFERRIN IRON PROFILE 80 MG/DL (200-360)
--- NOTE | 2016-10-20 11:43 | HHI.GIFU ---
Subjective Remarks Immediate post procedure note: Colonoscopy with snare polypectomy Indication: diarrhea, nausea and vomiting and abnormal ct scan Meds MAC Findings: Cecum: cluster of small polyps snare polypectomy with cautery. Rest of colon normal except for mild diverticulosis. Impression: small colon polyp. No cancer seen. Recommend: advance diet to regular. PET/CT scan. Objective Vitals I&O Vital Signs Date Time Temp Pulse Resp B/P Pulse Ox O2 Delivery O2 Flow Rate FiO2 10/20/16 10:50 98.1 68 16 135/64 99 10/20/16 07:27 96.9 67 18 149/67 99 10/20/16 03:58 98.1 60 19 162/65 99 10/20/16 00:15 98.0 65 19 145/64 99 10/19/16 20:05 98.0 73 19 140/77 95 10/19/16 15:23 97.6 65 17 159/86 97 10/19/16 14:17 76 16 132/75 100 10/19/16 14:11 87 16 141/63 100 10/19/16 14:06 98.2 88 16 145/74 100 10/19/16 11:40 97.5 69 17 142/65 99 I/O 10/19/16 10/19/16 10/19/16 10/20/16 10/20/16 10/20/16 07:00 15:00 23:00 07:00 15:00 23:00 Intake Total 300 ml Balance 300 ml IV Total 300 ml # Voids 2 1 # Bowel Movements 2 Laboratory Laboratory Tests Test 10/20/16 09:39 Erythrocyte Sedimentation Rate 44 Iron Level 29 Total Iron Binding Capacity 112 Percent Iron Saturation 25.9 Transferrin 80 Vitamin B12 Level 382 Folate 5.4 Date/Time Procedure Status Source Growth 10/17/16 11:27 Cryptosporidium Exam Received Stool Stool Pending 10/17/16 11:27 Giardia Antigen (JASON) Received Stool Stool Pending 10/17/16 11:27 Cancelled Stool Stool Physical Exam HEENT: EOMI; normocephalic; atraumatic; no jaundice. CHEST: Chest is clear to auscultation and percussion. CARDIAC: Regular rate and rhythm with no murmur gallop or rubs. ABDOMEN: Soft, nondistended, nontender; no hepatosplenomegaly; bowel sounds are present in all four quadrants. EXTREMITIES: No clubbing, cyanosis, or edema. SKIN: Normal; no rash; no jaundice. MEDICAL MANAGER: No focal deficits; alert and oriented times three. Assessment and Plan Plan Impression: Diarrhea, nausea and vomiting. Abnormal CT. Family history of colon cancer. Colon polyp in base of cecum. No cancer. Plan: regular diet. PET/CT Mickey Cherry MD October 20, 2016 11:43
--- NOTE | 2016-10-20 11:54 | MR ---
cc: MICKEY CHERRY,RADHA DATE: 10/19/2016 PROCEDURE: Esophagogastroduodenoscopy with biopsy and flexible sigmoidoscopy. INDICATIONS FOR PROCEDURE: Diarrhea, nausea and vomiting and abnormal CT scan. REFERRING PHYSICIAN: Radha Kenney MD. PROCEDURE: After the informed consent was obtained, the patient was taken to the endo lab. She was sedated by the anesthesia service. After adequate sedation was achieved, the Pentex Video gastroscope was inserted into the oral pharynx and advanced up to the esophagus, stomach and into the duodenum. The scope was then withdrawn slowly examining the mucosa carefully. Retroflexed examination was preformed, the fundus and cardia. The scope was then straightened and a biopsy was obtained from the gastric antrum for histology. The scope was then withdrawn and the procedure was terminated. A flexible sigmoidoscopy was then preformed. The Pentax video scope was inserted into the anal canal and advanced through the colon reaching about 40 cm's but it could not be advanced further due to poor visibility and very poor prep. The scope was then preformed and the procedure was terminated. She tolerated the procedure well and was returned to the Recovery Room in good condition. FINDINGS: 1. The esophagus was normal. 2. The stomach showed some mild gastritis and a biopsy was obtained. 3. The duodenum appeared normal. 4. The rectum and colon to about 40 cm were negative for evidence of acute colitis but the examination could not be carried further because of poor prep. IMPRESSION: 1. Gastritis. 2. Diarrhea. 3. Abnormal CT scan of uncertain cause with family history of colon cancer. PLAN: We will keep her on clear liquid diet and reprep her for colonoscopy tomorrow. Mickey Cherry MD [facility]/ /2:16 PM /11:37 AM
[2016-10-20] MEDS ORDERED: PHENYLEPH/NS 1000 MCG/10 ML SYR IV ONE (12:00)
[2016-10-20] MEDS ORDERED: ePHEDrine/NS 25 MG/5 ML SYR IV ONE (12:00)
[2016-10-20] MEDS ORDERED: PROPOFOL 200 MG/20 ML AMP IV ONE (12:13)
[2016-10-20 12:19] LABS: AUTOMATED NEUTROPHIL # 3.9 TH/MM3 (1.8-7.7); BASOPHIL % 0.6 % (0.0-2.0); EOSINOPHIL # 0.1 TH/MM3 (0-0.4); EOSINOPHIL % 2.3 % (0.0-4.0); HEMATOCRIT 33.1 % (35.0-46.0); HEMO FLAGS DIFF FINAL; LYMPH % 27.4 % (9.0-44.0); LYMPHOCYTE # 1.6 TH/MM3 (1.0-4.8); MEAN CELL VOLUME 70.4 FL (80.0-100.0); MEAN CORPUSCULAR HGB CONC 32.6 % (32.0-36.0); MONO % 4.8 % (0.0-8.0); NEUT % 64.9 % (16.0-70.0); PLATELET COUNT 290 TH/MM3 (150-450); RED CELL DISTRIBUTION WIDTH 17.1 % (11.6-17.2)
[2016-10-20 12:31] LABS: BLOOD UREA NITROGEN 3 MG/DL (7-18)
[2016-10-20 12:55] LABS: ANION GAP 11 MEQ/L (5-15); BICARBONATE 21.9 MEQ/L (21.0-32.0); CHLORIDE 108 MEQ/L (98-107); POTASSIUM 3.2 MEQ/L (3.5-5.1); SODIUM (NA) 141 MEQ/L (136-145)
[2016-10-20 12:58] LABS: GLOMERULAR FILTRATION RATE 417 ML/MIN (>89)
--- NOTE | 2016-10-20 12:59 | HHI.DS ---
Discharge Summary Admission Date October 16, 2016 at 4:23 pm Discharge Date: October 20, 2016 Admitting Diagnosis intractable nausea, vomit and diarrhea, lymphadenopathy (1) Intractable nausea and vomiting ICD Code: R11.2 Diagnosis: Principal (2) Acute gastroenteritis ICD Code: K52.9 Diagnosis: Principal (3) Lymphadenopathy, abdominal ICD Code: R59.0 Diagnosis: Secondary (4) weight loss, marked Diagnosis: Secondary Procedures 10/19 - EGD showed gastritis, colonoscopy with poor prep 10/20 - colonoscopy showed small polyp and diverticulosis Brief History - From Admission Ms. Castro is a pleasant 56 year old female with no significant medical history who presented to the ED due to nausea, vomiting, diarrhea, weight loss. During last 3 weeks, patient has been experiencing lack of appetite , diarrhea. She denies any abdominal pain. Due to her anorexia, she started drinking Ensure on 10/14/2016. Initially she tolerated Ensure okay except for some nausea. However, the following day, day prior to this admission , patient started having vomiting as well. Due to persistent diarrhea, patient' s primary care provider started her on Flagyl. However, it has not helped her symptoms. Denies any fever, chills. Denies any chest pain, cough. No changes in bladder habits. Patient reports about 14 pound weight loss over the last 3-4 weeks. She has not had any colonoscopy in recent years. CBC/BMP: 10/20/16 0939 10/17/16 0450 Significant Findings Laboratory Tests Test 10/19/16 10/20/16 05:27 09:39 Haptoglobin 253 MG/DL (30-200) C-Reactive Protein 3.95 MG/DL (0.00-0.30) Albumin 2.81 GM/DL (3.50-5.00) Albumin/Globulin Ratio 0.88 (1.39-2.23) Gamma Globulins 1.63 GM/DL (0.50-1.39) Thyroid Stimulating Hormone 5.510 uIU/ML 3rd Gen (0.358-3.740) Immunoglobulin G Total 1650 MG/DL (660-1620) Immunoglobulin M 42 MG/DL (49-302) Hemoglobin 10.8 GM/DL (11.6-15.3) Hematocrit 33.1 % (35.0-46.0) Mean Corpuscular Volume 70.4 FL (80.0-100.0) Mean Corpuscular Hemoglobin 23.0 PG (27.0-34.0) Erythrocyte Sedimentation Rate 44 mm/hr (0-30) Iron Level 29 MCG/DL (50-170) Total Iron Binding Capacity 112 MCG/DL (250-450) Transferrin 80 MG/DL (213-418) Imaging Last Impressions Abdomen/Pelvis CT 10/16/16 1155 Signed Impressions: Service Date/Time: Sunday, October 16, 2016 15:27 - CONCLUSION: 1. There is several nonspecific para-aortic and retroperitoneal lymph nodes in the mid to lower abdomen bilaterally. 2. There are prominent bilateral obturator lymph nodes deep in the pelvis. There is also a few prominent bilateral inguinal lymph nodes. These findings are nonspecific. However, neoplastic disease such as lymphoma would be a consideration. Therefore, recommend a whole body PET/CT to evaluate for focal hypermetabolic activity. Todd Blanco MD Chest X-Ray 10/16/16 0000 Signed Impressions: Service Date/Time: Sunday, October 16, 2016 12:47 - CONCLUSION: No acute disease. Gabriel Figueredo MD FACR PE at Discharge GENERAL: Well-developed well-nourished. In no acute distress. SKIN: Warm and dry. No lesions noted. HEENT: Normocephalic. Pupils equal and round. Mucous membranes pink and moist. CARDIOVASCULAR: Regular rate and rhythm. No murmur appreciated. RESPIRATORY: No accessory muscle use. Clear to auscultation. Breath sounds equal bilaterally. GASTROINTESTINAL: Abdomen soft, nontender, nondistended. Bowel sounds x4. MUSCULOSKELETAL: No obvious deformities. No clubbing or cyanosis. No edema. NEUROLOGICAL: Awake and alert. No focal neurological deficits. Moves upper and lower extremities spontaneously. Normal speech. PSYCHIATRIC: Appropriate mood and affect; insight and judgment normal. Pt update on day of discharge The patient is seen s/p colonoscopy. She is hungry and wants to eat, currently ordering her lunch. She denies any abdominal pain. No further episodes of nausea /vomiting. She has multiple bowel movements last night secondary to bowel prep. Denies fevers/chills. Denies any other medical complaints at this time. Hospital Course Ms. Castro is a 56 year old female with no significant medical history presents to the ED due to 3 week duration of diarrhea and 1-2 day duration of nausea, vomiting. She reports significant family history of GI malignancies. She has lost about 14 lbs over the last 3-4 weeks. - Acute gastroenteritis - presented with diarrhea, nausea, vomiting. Afebrile with no leukocytosis. C. difficile negative. Stool studies negative to date. GI consulted. EGD 10/19 showed gastritis, colonoscopy with poor prep, planned repeat colonoscopy 10/20 which showed colon polyp and diverticulosis. Diet advanced to regular, patient tolerated. - Abdominal lymphadenopathy: Reviewed: Abdominal CT showed several nonspecific para-aortic and retroperitoneal lymph nodes, prominent bilateral obturator lymph nodes deep in the pelvis, prominent bilateral inguinal lymph nodes; these findings are nonspecific, however neoplastic disease such as lymphoma would be a consideration. HIV and hepatitis panel negative. - Consulted General Surgery, discussed with Dr. Ahn. Suspect lymph nodes are reactive, and recommends against lymph node biopsy at this time. - Consulted oncology, currently recommends against biopsy of this time, laboratory workup started, follow-up additional recommendations although could likely complete workup as outpatient. - Consulted palliative care to clarify goals of care - GI recommends outpatient PET and oncology recommends outpatient mammogram, however per palliative care, patient adamantly does not wish to have any further medical work up - Generalized weakness - chronic per patient - PT consulted, continue daily PT, recommends HHC - Case management consulted for assistance with discharge planning, needs HHC at discharge DNR. SCDs. Pt Condition on Discharge: Stable Discharge Disposition: Disch w/ Home Health Serv Discharge Time: > 30 minutes Discharge Instructions DIET: Follow Instructions for: As Tolerated, No Restrictions, Heart Healthy Diet Follow up Referrals: Gastroenterology - 1 Week @ [facility] PCP Follow-up - 1 Week New Orders: PET, WHOLE BODY SCREENING MAMMOGRAM Continued Medications: Citalopram (Citalopram) 10 Mg Tab 10 MG PO DAILY Control Depression Ref 0 TAB Hydroxyzine HCl (Hydroxyzine HCl) 25 Mg Tab 25 MG PO QID Ref 0 TAB Discontinued Medications: Metronidazole (Flagyl) 500 Mg Tab 500 MG PO TID Infection Ref 0 TAB Maida Horton PA-C October 20, 2016 12:59
--- NOTE | 2016-10-20 13:01 | HHI.FF ---
Face to Face Verification Diagnosis: (1) Intractable nausea and vomiting (2) weight loss, marked (3) Acute gastroenteritis (4) Lymphadenopathy, abdominal Physical Therapy Order: Evaluate and Treat, Improve ambulation, Strength and gait training Home Health Nursing Order: Medical education Signs/symptoms of disease process Nursing assessment with vital signs I have seen patient Jackelin Castro on 10/20/16. My clinical findings support the need for the requested home health care services because: Ltd mobility - disease progression Deconditioned w/ increased weakness Limited ability to care for self I certify that my clinical findings support that this patient is homebound because: Unsafe to leave home unassisted Unable to use public transportation Maida Horton PA-C October 20, 2016 1:00 pm
[2016-10-20 15:05] VITALS: BP 121/59; PULSE 80; RESP 17; TEMP 98; O2SAT 100
[2016-10-20] MEDS ORDERED: POTASSIUM CHLORIDE 20 MEQ CONTROLLED RELEASE TAB PO ONE (15:30)
--- NOTE | 2016-10-21 19:02 | MR ---
cc: KRISHNA CHERRY,RADHA DATE 10/20/16 PROCEDURE Colonoscopy with snare polypectomy INDICATION Nausea, vomiting, diarrhea and abnormal CT scan REFERRING PHYSICIAN Dr. Radha Kenney PROCEDURE IN DETAIL After informed consent was obtained, the patient was placed in the left side down position. She was sedated by the anesthesia service. After adequate sedation was achieved, the digital rectal examination was performed. It was normal. The Pentax Video colonoscope was inserted into the anal canal and advanced to the base of the cecum. In the cecum there was a cluster of small polyps removed with a snare polypectomy technique. The scope was withdrawn through the colon examining carefully. A retroflex exam was performed. The scope was straightened and pulled through the anal canal and the procedure was terminated. She tolerated the procedure well and was returned to the recovery area in good condition. FINDINGS 1. The cecum contained a cluster of small polyps. These were removed with single snare polypectomy and recovered through the scope. 2. Remainder of the colon appeared normal except for some diverticulosis. 3. The rectum was normal. IMPRESSION 1. Colon polyps 2. Abnormal CT scan showing lymphadenopathy RECOMMENDATION 1. Advance diet to regular diet. 2. PET CT scan. Krishna Cherry MD [facility]/ /11:48 AM /6:44 PM MTDÁngel
== END 2016-10-20 18:54 | disposition home or self-care (01) ==
LOC: NEPE 11:11 → NEDA 16:23 → NEPGCP 18:31
PROVIDERS: ADMIT Internal Medicine; ATTEND Internal Medicine
DX: R11.2 Nausea with vomiting, unspecified (principal); K29.70 Gastritis, unspecified, without bleeding; K63.5 Polyp of colon; K57.30 Diverticulosis of large intestine without perforation or abscess without bleeding; K52.9 Noninfective gastroenteritis and colitis, unspecified; D50.9 Iron deficiency anemia, unspecified; R63.4 Abnormal weight loss; J44.9 Chronic obstructive pulmonary disease, unspecified; I10 Essential (primary) hypertension; F32.9 Major depressive disorder, single episode, unspecified; F41.9 Anxiety disorder, unspecified; M19.90 Unspecified osteoarthritis, unspecified site; Z66 Do not resuscitate; Z80.0 Family history of malignant neoplasm of digestive organs
CPT/HCPCS: 00740; 00810; 43239; 45330; 45385; 71010; 74177; 80048; 80053; 81001; 82550; 82607; 82746; 82784; 82948; 83010; 83540; 83550; 83605; 83615; 83690; 84165; 84443; 84466; 85025; 85652; 86038; 86140; 86703; 86705; 86803; 87015; 87328; 87329; 87340; 87493; 88305; 88312; 93005; 96374; 97162; 99284; G0378; G8987; G8988; J0744; J2370; J2405; J7030; Q9967